=== PATIENT | male | born 1940 | race Caucasian/White ===

== ENCOUNTER 2016-12-04 16:20 | Inpatient (IN) | payer MEDICARE, OTHER ==
[2016-12-04] MEDS ORDERED: Haloperidol Lactate 5 mg/mL 1mL Vial IM STA (16:46)
[2016-12-04] MEDS ORDERED: Haloperidol Lactate 5 mg/mL 1mL Vial ONE (16:50)
[2016-12-04 17:15] LABS: MEAN CORPUSCULAR HEMOGLOBIN 27.1 pg (27.0-31.0)
[2016-12-04 17:18] LABS: HEMOGLOBIN 16.6 gm/dL (12.6-17.4); MEAN CORPUSCULAR HGB CONC 32.6 pg (28.0-36.0); MEAN PLATELET VOLUME 7.9 fl; PLATELET COUNT 214 Th/cmm (150-400); RED BLOOD COUNT 6.15 Mil/cmm (3.80-5.80); RED CELL DISTRIBUTION WIDTH 14.9 % (11.5-20.0); WHITE BLOOD COUNT 10.3 Th/cmm (4.8-10.8)
[2016-12-04 17:28] LABS: ALB/GLOB RATIO 1.1 (1.0-1.8); ALKALINE PHOSPHATASE 91 U/L (34-104); ANION GAP 11.4 (7.0-16.0); BILIRUBIN,TOTAL 0.8 mg/dL (0.3-1.0); BUN - UREA NITROGEN 17 mg/dL (7-25); CALCIUM SERUM 9.6 mg/dL (8.6-10.3); CARBON DIOXIDE 27.2 mEq/L (21.0-31.0); CHLORIDE 102 mEq/L (98-107); GLUCOSE 138 mg/dL (70-105); POTASSIUM SERUM 3.6 mEq/L (3.5-5.1); SGOT 13 U/L (13-39); SGPT/ALT 8 U/L (7-52); SODIUM SERUM 137 mEq/L (136-145)
[2016-12-04 17:29] LABS: CHOLESTEROL 148 mg/dL (<200); TRIGLYCERIDES 120 mg/dL (<150)
[2016-12-04 17:34] LABS: BASOPHIL 1 % (0-3); EOSINOPHIL 2 % (0-5); NEUTROPHILS 75 % (40-80); PLATELET ESTIMATE ADEQUATE (NORMAL); PLATELET MORPHOLOGY NORMAL (NORMAL); TOTAL CELLS COUNTED 100
[2016-12-04 17:38] LABS: INR 1.04 (0.5-1.4); PROTHROMBIN TIME (TEST) 10.8 SECONDS (9.5-11.5)
--- NOTE | 2016-12-04 18:08 | ED Physician Chart ---
Chief Complaint/HPI - Patient Information Date Seen:: 12/04/16 Time Seen:: 16:50 Chief Complaint:: COMBATIVE History of Present Illness:: THIS IS A 76 YO COMBATIVE AND UNCOOPERATIVE SENT HERE [facility]ALUATION AND PLACEMENT IN THE GEROPSYCH UNIT. HE IS CHRONICALLY ILL WITH RIGHT SIDED PARALYSIS. Allergies:: Allergies Allergy/AdvReac Type Severity Reaction Status Date / Time No Known Allergies Allergy Verified 12/04/16 16:35 Vitals:: Vital Signs - 8 hr 12/04/16 16:44 Temp 97.9 F HR 88 BP 130/80 O2 Sat % 99 Historian:: Medical Records Review:: Nurse's Note Reviewed, Transfer documents Reviewed Review of Systems - Review of Systems General/Constitutional: No fever, No chills, No weight loss, No weakness, No diaphoresis, No edema, No loss of appetite, Other (THE PATIENT IS CONFUSED AND CANNOT GIVE A REVIEW OF SYSTEMS.) Skin: No skin lesions, No rash, No bruising Head: No headache, No light-headedness Eyes: No loss of vision, No pain, No diplopia ENT: No earache, No nasal drainage, No sore throat, No tinnitus Neck: No neck pain, No swelling, No thyromegaly, No stiffness, No mass noted Cardio Vascular: No chest pain, No palpitations, No PND, No orthopnea, No edema Pulmonary: No SOB, No cough, No sputum, No wheezing GI: No nausea, No vomiting, No diarrhea, No pain, No melena, No hematochezia, No constipation, No hematemesis G/U: No dysuria, No frequency, No hematuria Musculoskeletal: No bone or joint pain, No back pain, No muscle pain Endocrine: No polyuria, No polydipsia Psychiatric: No prior psych history, No depression, No anxiety, No suicidal ideation Hematopoietic: No bruising, No lymphadenopathy Allergic/Immuno: No urticaria, No angioedema Neurological: No syncope, No focal symptoms, No weakness, No paresthesia, No headache, No seizure, No dizziness, No confusion, No vertigo Past Medical History - Past Medical History Past Medical History: HTN, CVA/TIA, Dyslipidemia, Dementia Family History: None Social History: Non Smoker, No Alcohol, No Drug Use, Care Facility Surgical History: None Psychiatricy History: Depression, Dementia Family Medical History - Family Member Grandmother History Unknown: Yes Physical Exam - Physical Examination General/Constitutional: Awake, Well-developed, well-nourished, Alert, No distress, GCS 15, Non-toxic appearing, Ambulatory Other Gen/Cons comments:: THIS IS A LOUD COMBATIVE, UNCOOPERATIVE DISORIENTED MALE WHO IS INTERMITTENTLY CONFUSED Head: Atraumatic Eyes: Lids, conjuctiva normal, PERRL, EOMI Skin: Nl inspection, No rash, No skin lesions, No ecchymosis, Well hydrated, No lymphadenopathy ENMT: External ears, nose nl, Nasal exam nl, Lips, teeth, gums nl Neck: Nontender, Full ROM w/o pain, No JVD, No nuchal rigidity, No bruit, No mass, No stridor Respiratory: Nl effort/Exclusion, Clear to Auscultation, No Wheeze/Rhonchi/Rales Cardio Vascular: RRR, No murmur, gallop, rubs, NL S1 S2 GI: No tenderness/rebounding/guarding, No organomegaly, No hernia, Normal BS's, Nondistended, No mass/bruits, No McBurney tenderness : No CVA tenderness Extremities: No tenderness or effusion, Full ROM, normal strength in all extremities, No edema, Normal digits & nails Neuro/Psych: Alert/oriented, DTR's symmetric, Normal sensory exam, Normal motor strength, No focal deficits Other Neuro/Psych comments:: RIGHT UPPER AND LOWER EXTREMITY PARALYSIS WITH RIGHT SIDE MUSCLE WASTING. Misc: normal gait, Normal back, No paraspinal tenderness Labs/Radiology/EKG Results - Lab Results Results: Laboratory Tests 12/04/16 12/04/16 12/04/16 17:02 17:02 17:02 WBC 10.3 RBC 6.15 H Hgb 16.6 Hct 51.0 H MCV 83.0 MCH 27.1 MCHC Differential 32.6 RDW 14.9 Plt Count 214 MPV 7.9 Neutrophils (Manual) 75 Lymphocytes 20 Monocytes 2 Eosinophils 2 Basophils 1 Platelet Estimate ADEQUATE Platelet Morphology NORMAL RBC Morph Micro Appear NORMAL PT 10.8 INR 1.04 PTT (Actin FS) 24.1 L Sodium Potassium Chloride Carbon Dioxide Anion Gap BUN Creatinine Est GFR ( Amer) Est GFR (Non-Af Amer) BUN/Creatinine Ratio Glucose Calcium Total Bilirubin AST ALT Alkaline Phosphatase Troponin I Total Protein Albumin Globulin Albumin/Globulin Ratio Triglycerides 120 Cholesterol 148 LDL Cholesterol Direct 97 HDL Cholesterol 37 12/04/16 12/04/16 17:02 17:02 WBC RBC Hgb Hct MCV MCH MCHC Differential RDW Plt Count MPV Neutrophils (Manual) Lymphocytes Monocytes Eosinophils Basophils Platelet Estimate Platelet Morphology RBC Morph Micro Appear PT INR PTT (Actin FS) Sodium 137 Potassium 3.6 Chloride 102 Carbon Dioxide 27.2 Anion Gap 11.4 BUN 17 Creatinine 1.0 Est GFR ( Amer) TNP Est GFR (Non-Af Amer) TNP BUN/Creatinine Ratio 17.0 Glucose 138 H Calcium 9.6 Total Bilirubin 0.8 AST 13 ALT 8 Alkaline Phosphatase 91 Troponin I 0.02 Total Protein 8.0 Albumin 4.1 L Globulin 3.9 Albumin/Globulin Ratio 1.1 Triglycerides Cholesterol LDL Cholesterol Direct HDL Cholesterol Assessment - Assessment General Assessment: PSYCHOSIS ED Septic Shock - . Is Septic Shock (SBP<90, OR Lactate>4 mmol\L) present?: No - <6hrs of presentation: Vital Signs: Vital Signs - 8 hr 12/04/16 16:44 Temp 97.9 F HR 88 BP 130/80 O2 Sat % 99 Reassessment (Disposition) - Reassessment Reassessment Condition:: Improved - Diagnosis Diagnosis:: PSYCHOSIS - Patient Disposition Discharge/Transfer:: Acute Care w/in this hosp Admitting Medical Physician:: Karl Jones Admitting Psych Physician:: Shi Keating Condition at Disposition:: Unchanged ED Discharge Plan - Patient Disposition Admit/Discharge/Transfer: Acute Care w/in this hosp Condition at Disposition: Improved Instructions: Psychosis
[2016-12-04 21:47] VITALS: BP 138/77
[2016-12-04] MEDS ORDERED: Maalox 30 mL Cup PO PRN (22:01)
[2016-12-04] MEDS ORDERED: Magnesium Hydroxide (MOM) 30 mL UDC PO PRN (22:01)
--- NOTE | 2016-12-05 09:18 | History and Physical ---
History of Present Illness - HPI Chief Complaint: Increased in agitation HPI: Patient was sent for agitation eval Vital Signs: Last Vital Signs Temp 97.9 F 12/04/16 16:44 Pulse 84 12/04/16 21:16 Resp 20 12/04/16 21:16 BP 138/77 12/04/16 21:47 Pulse Ox 98 12/04/16 21:16 Past Medical History Cardiovascular: Report: CAD, HTN Pulmonary: Report: No Pertinent Hx BEHAVIORAL HEALTH TECH: Report: CVA, Dementia GI: Report: No Pertinent Hx Psych: Report: Anxiety, Psychosis Musculoskeletal: Report: Other (Right hemiparesis) Rheumatologic: Report: No pertinent Hx Infectious Disease: Report: No Pertinent Hx Renal/: Report: No Pertinent Hx Endocrine: Report: No Pertinent Hx Dermatology: Report: No Pertinent Hx - Past Surgical History Past Surgical History: No pertinent Hx Family Medical History - Family Member Grandmother History Unknown: Yes Ethnicity: Unknown Living Status: Unknown Hx Family Cancer: No Hx Family Coronary Artery Disease: No Hx Family Congestive Heart Failure: No Hx Family Stroke: No Hx Family Diabetes: No Hx Family Seizures: No Hx Family AIDS: No Hx Family HIV: No Hx Family COPD: No Hx Family Hepatitis: No Hx Family Psychiatric Problems: No Hx Family Tuberculosis: No Social History Smoke: No Alcohol: None Drugs: None Lives: Shelter Domestic Violence: Negative - Medications Home Medications: Home Medication Medication Instructions Recorded Type Olanzapine [Zyprexa] 5 mg PO BID 12/04/16 History alprazOLAM [Xanax*] 0.5 mg PO TID PRN 12/04/16 History - Allergies Allergies/Adverse Reactions: Allergies Allergy/AdvReac Type Severity Reaction Status Date / Time No Known Allergies Allergy Verified 12/04/16 16:35 Review of Systems - Review of Systems Constitutional: Report: No Significant Eyes: Report: No Significant ENT: Report: No Significant Respiratory: Report: No Significant Cardiovascular: Report: No Significant Gastrointestinal: Report: No Significant Genitourinary: Report: No Significant Musculoskeletal: Report: Other (Right hemiparesis) Skin: Report: No Significant Neurological: Report: Weakness Physical Exam - Physical Exam HEENT: Report: Ears Nose Throat within normal limits Neck: Report: Within normal limits Cardiovascular Systems: Report: Regular, Rate and Rhythm Respiratory: Report: Breath Sounds are within normal limits Abdomen: Report: Non-tender to palpation Back: Report: Inspection of back is within normal limits. (There is right hemiparesis) Skin: Report: Color of skin is within normal limits Neuro/Psych: Report: Disoriented to name time or place, No new focal deficits - Lab Results All Lab Results last 24 hours: Laboratory Last Values WBC 10.3 Th/cmm (4.8-10.8) 12/04/16 17: RBC 6.15 Mil/cmm (3.80-5.80) H 12/04/16 17:02 Hgb 16.6 gm/dL (12.6-17.4) 12/04/16 17:02 Hct 51.0 % (39.0-49.0) H 12/04/16 17: MCV 83.0 fl (80-99) 12/04/16 17: MCH 27.1 pg (27.0-31.0) 12/04/16 17: MCHC Differential 32.6 pg (28.0-36.0) 12/04/16 17: RDW 14.9 % (11.5-20.0) 12/04/16 17: Plt Count 214 Th/cmm (150-400) 12/04/16 17: MPV 7.9 fl 12/04/16 17:02 Neutrophils (Manual) 75 % (40-80) 12/04/16 17: Lymphocytes 20 % (20-50) 12/04/16 17:02 Monocytes 2 % (2-10) 12/04/16 17: Eosinophils 2 % (0-5) 12/04/16 17: Basophils 1 % (0-3) 12/04/16 17: Platelet Estimate ADEQUATE (NORMAL) 12/04/16 17: Platelet Morphology NORMAL (NORMAL) 12/04/16 17: RBC Morph Micro Appear NORMAL (NORMAL) 12/04/16 17: PT 10.8 SECONDS (9.5-11.5) 12/04/16 17: INR 1.04 (0.5-1.4) 12/04/16 17:02 PTT (Actin FS) 24.1 SECONDS (26.0-38.0) L 12/04/16 17: Sodium 137 mEq/L (136-145) 12/04/16 17:02 Potassium 3.6 mEq/L (3.5-5.1) 12/04/16 17:02 Chloride 102 mEq/L (98-107) 12/04/16 17:02 Carbon Dioxide 27.2 mEq/L (21.0-31.0) 12/04/16 17:02 Anion Gap 11.4 (7.0-16.0) 12/04/16 17:02 BUN 17 mg/dL (7-25) 12/04/16 17:02 Creatinine 1.0 mg/dL (0.7-1.3) 12/04/16 17:02 Est GFR ( Amer) TNP 12/04/16 17:02 Est GFR (Non-Af Amer) TNP 12/04/16 17:02 BUN/Creatinine Ratio 17.0 12/04/16 17:02 Glucose 138 mg/dL (70-105) H 12/04/16 17:02 Calcium 9.6 mg/dL (8.6-10.3) 12/04/16 17:02 Total Bilirubin 0.8 mg/dL (0.3-1.0) 12/04/16 17:02 AST 13 U/L (13-39) 12/04/16 17:02 ALT 8 U/L (7-52) 12/04/16 17:02 Alkaline Phosphatase 91 U/L (34-104) 12/04/16 17:02 Troponin I 0.02 ng/mL (0.01-0.05) 12/04/16 17:02 Total Protein 8.0 gm/dL (6.0-8.3) 12/04/16 17:02 Albumin 4.1 gm/dL (4.2-5.5) L 12/04/16 17:02 Globulin 3.9 gm/dL 12/04/16 17:02 Albumin/Globulin Ratio 1.1 (1.0-1.8) 12/04/16 17:02 Triglycerides 120 mg/dL (<150) 12/04/16 17:02 Cholesterol 148 mg/dL (<200) 12/04/16 17:02 LDL Cholesterol Direct 97 mg/dL (75-193) 12/04/16 17:02 HDL Cholesterol 37 mg/dL (23-92) 12/04/16 17:02 TSH 2.16 uIU/ml (0.34-5.60) 12/04/16 17:02 - Assessment Assessment: Patient is awake, caml in no acute distress, Dx: Increased in agitation, S/P CVA , Right hemiparesis, HTN, Dementia - Plan Plan: Patient under psychiatric follow up, Will continue to monitor.
--- NOTE | 2016-12-05 09:21 | Psychosocial Evaluation ---
DATE OF SERVICE: 12/05/2016 JUSTIFICATION FOR HOSPITALIZATION: Agitation, combative, violent behaviors. CHIEF COMPLAINT: Decompensation and violence. HISTORY OF PRESENT ILLNESS: A 76-year-old male, self-inflicted scratches on his upper extremities, weak, combative, aggressive, and uncooperative at the assisted, trying to hit staff. On [id number], the patient making nonsensical comments, staff notes he does say some things. PAST PSYCHIATRIC HISTORY: It is unclear if he has a diagnosis of dementia, but it is likely, also depression noted. FAMILY HISTORY: Unknown. SOCIAL HISTORY: Nonsmoker, no alcohol, no drug use, living in a care facility, unclear social support. PAST SURGICAL HISTORY: None. PAST MEDICAL HISTORY: Hypertension, CVA, dyslipidemia. MENTAL STATUS EXAMINATION: Stated age, multiple self-inflicted excoriations noted. Speech, mumbling nonsensically. Thought processes were impoverished. Thought content __no___ SI or HI. Unclear psychotic symptoms. Poor insight. Poor judgment, poor impulse control. PROVISIONAL DIAGNOSES: Likely dementia with behavioral disturbances; psychosis, unspecified; mood, unspecified; anxiety, unspecified. MEDICAL: As noted. ESTIMATED LENGTH OF STAY: 5-7 days. ASSESSMENT: The patient requiring inpatient hospitalization, aggressive, agitated, combative, violence towards others and self. PLAN: We will make medication adjustments. Given the severity of his symptoms, he will require inpatient admission. CONDITIONS FOR DISCHARGE: Improved mood, improved affect, better control of his psychotic symptoms, aggressive symptoms, currently on Zyprexa. [facility]# [id number] ZACK
--- NOTE | 2016-12-06 10:00 | General Progress Note ---
Subjective - Review of Systems Service Date: 12/06/16 Subjective: Patient is confused Objective - Results Result Diagrams: 12/04/16 17:02 12/04/16 17:02 Recent Labs: Laboratory Last Values WBC 10.3 Th/cmm (4.8-10.8) 12/04/16 17:02 RBC 6.15 Mil/cmm (3.80-5.80) H 12/04/16 17:02 Hgb 16.6 gm/dL (12.6-17.4) 12/04/16 17:02 Hct 51.0 % (39.0-49.0) H 12/04/16 17:02 MCV 83.0 fl (80-99) 12/04/16 17: MCH 27.1 pg (27.0-31.0) 12/04/16 17: MCHC Differential 32.6 pg (28.0-36.0) 12/04/16 17:02 RDW 14.9 % (11.5-20.0) 12/04/16 17:02 Plt Count 214 Th/cmm (150-400) 12/04/16 17:02 MPV 7.9 fl 12/04/16 17:02 Neutrophils (Manual) 75 % (40-80) 12/04/16 17: Lymphocytes 20 % (20-50) 12/04/16 17:02 Monocytes 2 % (2-10) 12/04/16 17:02 Eosinophils 2 % (0-5) 12/04/16 17:02 Basophils 1 % (0-3) 12/04/16 17:02 Platelet Estimate ADEQUATE (NORMAL) 12/04/16 17: Platelet Morphology NORMAL (NORMAL) 12/04/16 17: RBC Morph Micro Appear NORMAL (NORMAL) 12/04/16 17:02 PT 10.8 SECONDS (9.5-11.5) 12/04/16 17:02 INR 1.04 (0.5-1.4) 12/04/16 17:02 PTT (Actin FS) 24.1 SECONDS (26.0-38.0) L 12/04/16 17:02 Sodium 137 mEq/L (136-145) 12/04/16 17:02 Potassium 3.6 mEq/L (3.5-5.1) 12/04/16 17:02 Chloride 102 mEq/L (98-107) 12/04/16 17:02 Carbon Dioxide 27.2 mEq/L (21.0-31.0) 12/04/16 17:02 Anion Gap 11.4 (7.0-16.0) 12/04/16 17:02 BUN 17 mg/dL (7-25) 12/04/16 17:02 Creatinine 1.0 mg/dL (0.7-1.3) 12/04/16 17:02 Est GFR ( Amer) TNP 12/04/16 17:02 Est GFR (Non-Af Amer) TNP 12/04/16 17:02 BUN/Creatinine Ratio 17.0 12/04/16 17:02 Glucose 138 mg/dL (70-105) H 12/04/16 17:02 Calcium 9.6 mg/dL (8.6-10.3) 12/04/16 17:02 Total Bilirubin 0.8 mg/dL (0.3-1.0) 12/04/16 17:02 AST 13 U/L (13-39) 12/04/16 17:02 ALT 8 U/L (7-52) 12/04/16 17:02 Alkaline Phosphatase 91 U/L (34-104) 12/04/16 17:02 Troponin I 0.02 ng/mL (0.01-0.05) 12/04/16 17:02 Total Protein 8.0 gm/dL (6.0-8.3) 12/04/16 17:02 Albumin 4.1 gm/dL (4.2-5.5) L 12/04/16 17:02 Globulin 3.9 gm/dL 12/04/16 17:02 Albumin/Globulin Ratio 1.1 (1.0-1.8) 12/04/16 17:02 Triglycerides 120 mg/dL (<150) 12/04/16 17:02 Cholesterol 148 mg/dL (<200) 12/04/16 17:02 LDL Cholesterol Direct 97 mg/dL (75-193) 12/04/16 17:02 HDL Cholesterol 37 mg/dL (23-92) 12/04/16 17:02 TSH 2.16 uIU/ml (0.34-5.60) 12/04/16 17:02 RPR NONREACTIVE (NONREACTIVE) 12/04/16 17:02 - Physical Exam Vitals and I&O: Vital Signs Temp 97.9 F 12/04/16 16:44 Pulse 84 12/04/16 21:16 Resp 18 12/05/16 20:00 BP 138/77 12/04/16 21:47 Pulse Ox 98 12/04/16 21:16 Intake & Output 12/05/16 12/06/16 12/06/16 18:59 06:59 18:59 Intake Total 850 120 Balance 850 120 Intake: Oral 850 120 Other: # Voids 5 2 # Bowel Movements 1 Active Medications: Current Medications Acetaminophen (Tylenol) 650 mg PO Q6H PRN PRN Reason: Mild Pain/Headache/T above 101 Stop: 02/02/17 22:00 Al Hydrox/Mg Hydrox/Simethicone (Maalox) 30 ml PO Q6H PRN PRN Reason: Dyspepsia Stop: 02/02/17 22:00 Alprazolam (Xanax) 0.5 mg PO TID PRN; Protocol PRN Reason: Anxiety Stop: 02/02/17 22:02 Lorazepam (Ativan) 1 mg PO Q6H PRN; Protocol PRN Reason: Anxiety/Agitation Stop: 02/02/17 22:00 Magnesium Hydroxide (Milk Of Magnesia) 30 ml PO HS PRN PRN Reason: Constipation Stop: 02/02/17 22:00 Olanzapine (Zyprexa) 7.5 mg PO HS GINETTE PRN Reason: Protocol Stop: 02/04/17 20:59 Olanzapine (Zyprexa) 5 mg PO DAILY GINETTE PRN Reason: Protocol Stop: 02/04/17 08:59 Last Admin: 12/06/16 09:52 Dose: Not Given Zolpidem Tartrate (Ambien) 5 mg PO HS PRN PRN Reason: Insomnia Stop: 02/02/17 22:00 General: Other (Sleeping but arousable) HEENT: Atraumatic Cardiovascular: Regular rate Lungs: Clear to auscultation Abdomen: Bowel sounds, Soft Extremities: Other (No edema) Neurological: Other (Unstable gait ) Skin: Other Psych/Mental Status: Other (Confused, not oriented) Assessment/Plan - Assessment Assessment: Patient is awake, caml in no acute distress, Dx: Increased in agitation, S/P CVA , Right hemiparesis, HTN, Dementia - Plan Plan: Patient under psychiatric follow up, Will continue to monitor.
--- NOTE | 2016-12-06 11:00 | Progress Notes ---
DATE: 12/06/2016 SUBJECTIVE: The patient seen, chart reviewed, discussed with staff. The patient is currently under the care of Dr. Keating. The patient came in because of agitation and aggressive behaviors, hostile behaviors. The patient seems confused, disoriented, right-sided paralysis, refusing to speak with me this morning. Staff noting he tries to lash out and hit staff. sleeping fairly well, eating with prompting, ADLs with prompting. ASSESSMENT: The patient remains symptomatic, aggressive, hostile towards staff. PLAN: We will continue to monitor, given the severity of his ongoing symptoms there are continued safety concerns. He is currently on Zyprexa 5 mg twice daily. We will consider dose titration given the ongoing severity of his confusional state as well as aggressive behaviors. [facility]# [id number]
--- NOTE | 2016-12-07 11:12 | General Progress Note ---
Subjective - Review of Systems Service Date: 12/07/16 Subjective: Patient is confused Objective - Results Result Diagrams: 12/04/16 17:02 12/04/16 17:02 Recent Labs: Laboratory Last Values WBC 10.3 Th/cmm (4.8-10.8) 12/04/16 17:02 RBC 6.15 Mil/cmm (3.80-5.80) H 12/04/16 17:02 Hgb 16.6 gm/dL (12.6-17.4) 12/04/16 17:02 Hct 51.0 % (39.0-49.0) H 12/04/16 17:02 MCV 83.0 fl (80-99) 12/04/16 17: MCH 27.1 pg (27.0-31.0) 12/04/16 17: MCHC Differential 32.6 pg (28.0-36.0) 12/04/16 17:02 RDW 14.9 % (11.5-20.0) 12/04/16 17:02 Plt Count 214 Th/cmm (150-400) 12/04/16 17:02 MPV 7.9 fl 12/04/16 17:02 Neutrophils (Manual) 75 % (40-80) 12/04/16 17: Lymphocytes 20 % (20-50) 12/04/16 17:02 Monocytes 2 % (2-10) 12/04/16 17:02 Eosinophils 2 % (0-5) 12/04/16 17:02 Basophils 1 % (0-3) 12/04/16 17:02 Platelet Estimate ADEQUATE (NORMAL) 12/04/16 17: Platelet Morphology NORMAL (NORMAL) 12/04/16 17: RBC Morph Micro Appear NORMAL (NORMAL) 12/04/16 17:02 PT 10.8 SECONDS (9.5-11.5) 12/04/16 17:02 INR 1.04 (0.5-1.4) 12/04/16 17:02 PTT (Actin FS) 24.1 SECONDS (26.0-38.0) L 12/04/16 17:02 Sodium 137 mEq/L (136-145) 12/04/16 17:02 Potassium 3.6 mEq/L (3.5-5.1) 12/04/16 17:02 Chloride 102 mEq/L (98-107) 12/04/16 17:02 Carbon Dioxide 27.2 mEq/L (21.0-31.0) 12/04/16 17:02 Anion Gap 11.4 (7.0-16.0) 12/04/16 17:02 BUN 17 mg/dL (7-25) 12/04/16 17:02 Creatinine 1.0 mg/dL (0.7-1.3) 12/04/16 17:02 Est GFR ( Amer) TNP 12/04/16 17:02 Est GFR (Non-Af Amer) TNP 12/04/16 17:02 BUN/Creatinine Ratio 17.0 12/04/16 17:02 Glucose 138 mg/dL (70-105) H 12/04/16 17:02 Calcium 9.6 mg/dL (8.6-10.3) 12/04/16 17:02 Total Bilirubin 0.8 mg/dL (0.3-1.0) 12/04/16 17:02 AST 13 U/L (13-39) 12/04/16 17:02 ALT 8 U/L (7-52) 12/04/16 17:02 Alkaline Phosphatase 91 U/L (34-104) 12/04/16 17:02 Troponin I 0.02 ng/mL (0.01-0.05) 12/04/16 17:02 Total Protein 8.0 gm/dL (6.0-8.3) 12/04/16 17:02 Albumin 4.1 gm/dL (4.2-5.5) L 12/04/16 17:02 Globulin 3.9 gm/dL 12/04/16 17:02 Albumin/Globulin Ratio 1.1 (1.0-1.8) 12/04/16 17:02 Triglycerides 120 mg/dL (<150) 12/04/16 17:02 Cholesterol 148 mg/dL (<200) 12/04/16 17:02 LDL Cholesterol Direct 97 mg/dL (75-193) 12/04/16 17:02 HDL Cholesterol 37 mg/dL (23-92) 12/04/16 17:02 TSH 2.16 uIU/ml (0.34-5.60) 12/04/16 17:02 RPR NONREACTIVE (NONREACTIVE) 12/04/16 17:02 - Physical Exam Vitals and I&O: Vital Signs Temp 97.9 F 12/04/16 16:44 Pulse 84 12/04/16 21:16 Resp 18 12/05/16 20:00 BP 138/77 12/04/16 21:47 Pulse Ox 98 12/04/16 21:16 Intake & Output 12/06/16 12/07/16 12/07/16 18:59 06:59 18:59 Intake Total 950 180 Balance 950 180 Intake: Oral 950 180 Other: # Voids 4 2 # Bowel Movements 0 0 Active Medications: Current Medications Acetaminophen (Tylenol) 650 mg PO Q6H PRN PRN Reason: Mild Pain/Headache/T above 101 Stop: 02/02/17 22:00 Al Hydrox/Mg Hydrox/Simethicone (Maalox) 30 ml PO Q6H PRN PRN Reason: Dyspepsia Stop: 02/02/17 22:00 Alprazolam (Xanax) 0.5 mg PO TID PRN; Protocol PRN Reason: Anxiety Stop: 02/02/17 22:02 Lorazepam (Ativan) 1 mg PO Q6H PRN; Protocol PRN Reason: Anxiety/Agitation Stop: 02/02/17 22:00 Last Admin: 12/06/16 10:20 Dose: 1 mg Magnesium Hydroxide (Milk Of Magnesia) 30 ml PO HS PRN PRN Reason: Constipation Stop: 02/02/17 22:00 Olanzapine (Zyprexa) 7.5 mg PO HS GINETTE PRN Reason: Protocol Stop: 02/04/17 20:59 Last Admin: 12/06/16 21:23 Dose: Not Given Olanzapine (Zyprexa) 5 mg PO DAILY GINETTE PRN Reason: Protocol Stop: 02/04/17 08:59 Last Admin: 12/06/16 09:52 Dose: Not Given Zolpidem Tartrate (Ambien) 5 mg PO HS PRN PRN Reason: Insomnia Stop: 02/02/17 22:00 General: Other (Sleeping but arousable) HEENT: Atraumatic Cardiovascular: Regular rate Lungs: Clear to auscultation Abdomen: Bowel sounds, Soft Extremities: Other (No edema) Neurological: Other (Unstable gait ) Skin: Other Psych/Mental Status: Other (Confused, not oriented) Assessment/Plan - Assessment Assessment: Patient is awake, caml in no acute distress, Patient is refusing vitals be taken. Dx: Increased in agitation, S/P CVA, Right hemiparesis, HTN, Dementia - Plan Plan: Patient under psychiatric follow up, Will continue to monitor.
--- NOTE | 2016-12-07 14:06 | Progress Notes ---
DATE: 12/07/[address] Keating. SUBJECTIVE: The patient was seen and evaluated. The patient's chart reviewed. Overnight nursing staff reported the patient is easily agitated, aggressive and irritable and instigating altercation with his neighbor. Today on [id number], presents very irritable, easily agitated, minimizing, preoccupied only about going home, disengaged in regards to his treatments, easily aggressive verbally. At bedside, his son is reporting that he has been declining, recently become more aggressive and difficult to maintain his ADLs. Today, no side effects to medications observed on olanzapine. He is able to ____ total of 12.5. MENTAL STATUS EXAMINATION: Paranoid, delusional, easily agitated, labile, poor insight, judgment and impulse control. ASSESSMENT AND PLAN: The patient is a 76-year-old male with a history of schizophrenia, presented very aggressive verbally and physically, unable to formulate a safe plan. We will continue with the current medication regimen and titrate the Zyprexa as tolerated while we start him on a 14-day hold. JOB# [id number]
--- NOTE | 2016-12-08 09:02 | General Progress Note ---
Subjective - Review of Systems Service Date: 12/08/16 Subjective: Patient is confused Objective - Results Result Diagrams: 12/04/16 17:02 12/04/16 17:02 Recent Labs: Laboratory Last Values WBC 10.3 Th/cmm (4.8-10.8) 12/04/16 17:02 RBC 6.15 Mil/cmm (3.80-5.80) H 12/04/16 17:02 Hgb 16.6 gm/dL (12.6-17.4) 12/04/16 17:02 Hct 51.0 % (39.0-49.0) H 12/04/16 17:02 MCV 83.0 fl (80-99) 12/04/16 17: MCH 27.1 pg (27.0-31.0) 12/04/16 17: MCHC Differential 32.6 pg (28.0-36.0) 12/04/16 17:02 RDW 14.9 % (11.5-20.0) 12/04/16 17:02 Plt Count 214 Th/cmm (150-400) 12/04/16 17:02 MPV 7.9 fl 12/04/16 17:02 Neutrophils (Manual) 75 % (40-80) 12/04/16 17: Lymphocytes 20 % (20-50) 12/04/16 17:02 Monocytes 2 % (2-10) 12/04/16 17:02 Eosinophils 2 % (0-5) 12/04/16 17:02 Basophils 1 % (0-3) 12/04/16 17:02 Platelet Estimate ADEQUATE (NORMAL) 12/04/16 17: Platelet Morphology NORMAL (NORMAL) 12/04/16 17: RBC Morph Micro Appear NORMAL (NORMAL) 12/04/16 17:02 PT 10.8 SECONDS (9.5-11.5) 12/04/16 17:02 INR 1.04 (0.5-1.4) 12/04/16 17:02 PTT (Actin FS) 24.1 SECONDS (26.0-38.0) L 12/04/16 17:02 Sodium 137 mEq/L (136-145) 12/04/16 17:02 Potassium 3.6 mEq/L (3.5-5.1) 12/04/16 17:02 Chloride 102 mEq/L (98-107) 12/04/16 17:02 Carbon Dioxide 27.2 mEq/L (21.0-31.0) 12/04/16 17:02 Anion Gap 11.4 (7.0-16.0) 12/04/16 17:02 BUN 17 mg/dL (7-25) 12/04/16 17:02 Creatinine 1.0 mg/dL (0.7-1.3) 12/04/16 17:02 Est GFR ( Amer) TNP 12/04/16 17:02 Est GFR (Non-Af Amer) TNP 12/04/16 17:02 BUN/Creatinine Ratio 17.0 12/04/16 17:02 Glucose 138 mg/dL (70-105) H 12/04/16 17:02 Calcium 9.6 mg/dL (8.6-10.3) 12/04/16 17:02 Total Bilirubin 0.8 mg/dL (0.3-1.0) 12/04/16 17:02 AST 13 U/L (13-39) 12/04/16 17:02 ALT 8 U/L (7-52) 12/04/16 17:02 Alkaline Phosphatase 91 U/L (34-104) 12/04/16 17:02 Troponin I 0.02 ng/mL (0.01-0.05) 12/04/16 17:02 Total Protein 8.0 gm/dL (6.0-8.3) 12/04/16 17:02 Albumin 4.1 gm/dL (4.2-5.5) L 12/04/16 17:02 Globulin 3.9 gm/dL 12/04/16 17:02 Albumin/Globulin Ratio 1.1 (1.0-1.8) 12/04/16 17:02 Triglycerides 120 mg/dL (<150) 12/04/16 17:02 Cholesterol 148 mg/dL (<200) 12/04/16 17:02 LDL Cholesterol Direct 97 mg/dL (75-193) 12/04/16 17:02 HDL Cholesterol 37 mg/dL (23-92) 12/04/16 17:02 TSH 2.16 uIU/ml (0.34-5.60) 12/04/16 17:02 RPR NONREACTIVE (NONREACTIVE) 12/04/16 17:02 - Physical Exam Vitals and I&O: Vital Signs Temp 97.6 F 12/08/16 06:42 Pulse 82 12/08/16 06:42 Resp 20 12/08/16 06:42 BP 102/72 12/08/16 06:42 Pulse Ox 97 12/08/16 06:42 Intake & Output 12/07/16 12/08/16 12/08/16 18:59 06:59 18:59 Intake Total 1800 60 Balance 1800 60 Weight (lbs) 86.183 kg Intake: Oral 1800 60 Other: # Voids 4 3 # Bowel Movements 0 0 Active Medications: Current Medications Acetaminophen (Tylenol) 650 mg PO Q6H PRN PRN Reason: Mild Pain/Headache/T above 101 Stop: 02/02/17 22:00 Al Hydrox/Mg Hydrox/Simethicone (Maalox) 30 ml PO Q6H PRN PRN Reason: Dyspepsia Stop: 02/02/17 22:00 Alprazolam (Xanax) 0.5 mg PO TID PRN; Protocol PRN Reason: Anxiety Stop: 02/02/17 22:02 Lorazepam (Ativan) 1 mg PO Q6H PRN; Protocol PRN Reason: Anxiety/Agitation Stop: 02/02/17 22:00 Last Admin: 12/06/16 10:20 Dose: 1 mg Magnesium Hydroxide (Milk Of Magnesia) 30 ml PO HS PRN PRN Reason: Constipation Stop: 02/02/17 22:00 Olanzapine (Zyprexa) 7.5 mg PO HS GINETTE PRN Reason: Protocol Stop: 02/04/17 20:59 Last Admin: 12/07/16 20:16 Dose: Not Given Olanzapine (Zyprexa) 5 mg PO DAILY GINETTE PRN Reason: Protocol Stop: 02/04/17 08:59 Last Admin: 12/07/16 12:16 Dose: Not Given Zolpidem Tartrate (Ambien) 5 mg PO HS PRN PRN Reason: Insomnia Stop: 02/02/17 22:00 General: Other (Sleeping but arousable) HEENT: Atraumatic Cardiovascular: Regular rate Lungs: Clear to auscultation Abdomen: Bowel sounds, Soft Extremities: Other (No edema) Neurological: Other (Unstable gait ) Skin: Other Psych/Mental Status: Other (Confused, not oriented) Assessment/Plan - Assessment Assessment: Patient is awake, caml in no acute distress, Patient is refusing vitals be taken. Dx: Increased in agitation, S/P CVA, Right hemiparesis, HTN, Dementia - Plan Plan: Patient under psychiatric follow up, Will continue to monitor.
--- NOTE | 2016-12-09 01:57 | Progress Notes ---
DATE: 12/08/2016 Case was discussed with staff of the patient, reviewed records. This is a 76-year-old male who was admitted on 12/04/2016. He has made self-inflicted wound on his upper extremities. He is being weak, combative, aggressive and uncooperative at the long term, trying to hit staff. The patient was not making sense. He did not say anything. He has not been taking his medication. Unable to participate in meaningful conversation. When asked about his medication, he was unable to tell me anything or answer any of my questions. He has been internally preoccupied. Very poor insight. Unable to participate in meaningful conversations Dr. Curtis have him on olanzapine 5 mg in the morning and 7.5 mg at bedtime with no side effects. No sedation, no nausea. I will be adding Aricept to his medication to help with his dementing process. Also, we will try to reach him. I tried to ask him many times why he would not take his medications ____ and he does not seem to understand the process and I will continue to work with the patient in group therapy, milieu therapy, adjust the medication as needed. JOB# [id number]
--- NOTE | 2016-12-09 22:37 | Progress Notes ---
DATE: 12/09/2016 Case was discussed with staff of the patient, reviewed records. The patient continues to refuse to take his medication. He continues to be unable to carry on a conversation. When I tried to talk to him about why he is not taking his medication, if there was any side effect to this, any other medication that he would take, he was just waving his hand. He was unable to answer any of my questions in any appropriate way or tell me why he is not taking his medication. He also is demented and confused, and I did initiate Aricept on him, and so far ____ I tried to convince the patient to take his medication; however, I ____. He is also on 5250 hold that was signed by Dr. Fowler on 12/07/2016 because of his aggressive behavior and unable to formulate a safe plan for self-care. I will continue the patient in group therapy, milieu therapy, and adjust medication as needed. JOB# [id number]
--- NOTE | 2016-12-10 02:25 | Admit Criteria Form ---
Admit Criteria Forms - Admit Criteria Diagnosis: PSYCHIATRIC DISORDERS (Place 'X' for any and all applicable criteria): Ongoing inpatient care may be needed for 1 or more of the following(1)(2)(3)(4)( 6)(7)(8): [ ]I. Danger to self or others not manageable at lower level of care. [ ]II. Grave disability (eg, inability to perform self care necessary at lower level of care) [X ]III. Agitation or inappropriate behavior interfering with care for primary condition (eg, attempting to discontinue lines or drains prematurely, unable to cooperate with respiratory care) [ ]IV. Severe disability or disorder indicated by ALL of the following: [ ]a) Severe behavioral health disorder-related symptoms or condition indicated by 1 or more of the following: [ ]i) Severe problem with cognition, memory, judgment, or impulse control [ ]ii) Severe clinical manifestations (eg, hallucinations, delusions, other acute psychotic symptoms, katie, extreme agitation or anxiety) [ ]b) Patient management at lower level of care is not feasible until acute intervention or modification is initiated. Extended stay beyond goal length of stay for the primary condition may be needed until ALLof the following are present(1)(2)(3)(4)(722)(23): [ ]a) Danger to self or others is absent or manageable at lower level of care [ ]b) Behavior crisis management, including physical or chemical restraints, is required and is not available at a lower level of care. [ ]c) Behavioral symptoms (e.g., agitation, somnolence, inappropriate behavior) are present, and are not manageable at a lower level of care. [ ]d) Patient cannot understand follow-up treatment and crisis plan. [ ]e) Provider and supports are sufficiently available at lower level of care. [ ]f) Patient can participate (e.g., verify absence of plan for harm) and is in needed of monitoring. The original [facility] [employer] content created by [facility] has been revised. The portions of the content which have been revised are identified through the use of italic text or in bold, and [facility] [employer] has neither reviewed nor approved the modified material. All other unmodified content is copyright [facility]. Please see references footnoted in the original [facility] edition 2017 Admit Criteria Met?: Yes
--- NOTE | 2016-12-10 12:21 | General Progress Note ---
Subjective - Review of Systems Service Date: 12/10/16 Subjective: Patient is confused Objective - Results Result Diagrams: 12/04/16 17:02 12/04/16 17:02 Recent Labs: Laboratory Last Values WBC 10.3 Th/cmm (4.8-10.8) 12/04/16 17:02 RBC 6.15 Mil/cmm (3.80-5.80) H 12/04/16 17:02 Hgb 16.6 gm/dL (12.6-17.4) 12/04/16 17:02 Hct 51.0 % (39.0-49.0) H 12/04/16 17:02 MCV 83.0 fl (80-99) 12/04/16 17: MCH 27.1 pg (27.0-31.0) 12/04/16 17: MCHC Differential 32.6 pg (28.0-36.0) 12/04/16 17:02 RDW 14.9 % (11.5-20.0) 12/04/16 17:02 Plt Count 214 Th/cmm (150-400) 12/04/16 17:02 MPV 7.9 fl 12/04/16 17:02 Neutrophils (Manual) 75 % (40-80) 12/04/16 17: Lymphocytes 20 % (20-50) 12/04/16 17:02 Monocytes 2 % (2-10) 12/04/16 17:02 Eosinophils 2 % (0-5) 12/04/16 17:02 Basophils 1 % (0-3) 12/04/16 17:02 Platelet Estimate ADEQUATE (NORMAL) 12/04/16 17: Platelet Morphology NORMAL (NORMAL) 12/04/16 17: RBC Morph Micro Appear NORMAL (NORMAL) 12/04/16 17:02 PT 10.8 SECONDS (9.5-11.5) 12/04/16 17:02 INR 1.04 (0.5-1.4) 12/04/16 17:02 PTT (Actin FS) 24.1 SECONDS (26.0-38.0) L 12/04/16 17:02 Sodium 137 mEq/L (136-145) 12/04/16 17:02 Potassium 3.6 mEq/L (3.5-5.1) 12/04/16 17:02 Chloride 102 mEq/L (98-107) 12/04/16 17:02 Carbon Dioxide 27.2 mEq/L (21.0-31.0) 12/04/16 17:02 Anion Gap 11.4 (7.0-16.0) 12/04/16 17:02 BUN 17 mg/dL (7-25) 12/04/16 17:02 Creatinine 1.0 mg/dL (0.7-1.3) 12/04/16 17:02 Est GFR ( Amer) TNP 12/04/16 17:02 Est GFR (Non-Af Amer) TNP 12/04/16 17:02 BUN/Creatinine Ratio 17.0 12/04/16 17:02 Glucose 138 mg/dL (70-105) H 12/04/16 17:02 Calcium 9.6 mg/dL (8.6-10.3) 12/04/16 17:02 Total Bilirubin 0.8 mg/dL (0.3-1.0) 12/04/16 17:02 AST 13 U/L (13-39) 12/04/16 17:02 ALT 8 U/L (7-52) 12/04/16 17:02 Alkaline Phosphatase 91 U/L (34-104) 12/04/16 17:02 Troponin I 0.02 ng/mL (0.01-0.05) 12/04/16 17:02 Total Protein 8.0 gm/dL (6.0-8.3) 12/04/16 17:02 Albumin 4.1 gm/dL (4.2-5.5) L 12/04/16 17:02 Globulin 3.9 gm/dL 12/04/16 17:02 Albumin/Globulin Ratio 1.1 (1.0-1.8) 12/04/16 17:02 Triglycerides 120 mg/dL (<150) 12/04/16 17:02 Cholesterol 148 mg/dL (<200) 12/04/16 17:02 LDL Cholesterol Direct 97 mg/dL (75-193) 12/04/16 17:02 HDL Cholesterol 37 mg/dL (23-92) 12/04/16 17:02 TSH 2.16 uIU/ml (0.34-5.60) 12/04/16 17:02 RPR NONREACTIVE (NONREACTIVE) 12/04/16 17:02 - Physical Exam Vitals and I&O: Vital Signs Temp 0 F 12/09/16 06:47 Pulse 78 12/08/16 14:00 Resp 20 12/09/16 08:00 BP 128/66 12/08/16 14:00 Pulse Ox 96 12/08/16 14:00 Intake & Output 12/09/16 12/10/16 12/10/16 18:59 06:59 18:59 Intake Total 1200 120 Output Total 600 Balance 600 120 Weight (lbs) 86.092 kg Intake: Oral 1200 120 Output: Urine/Stool Mix 600 Other: # Voids 3 Active Medications: Current Medications Acetaminophen (Tylenol) 650 mg PO Q6H PRN PRN Reason: Mild Pain/Headache/T above 101 Stop: 02/02/17 22:00 Al Hydrox/Mg Hydrox/Simethicone (Maalox) 30 ml PO Q6H PRN PRN Reason: Dyspepsia Stop: 02/02/17 22:00 Alprazolam (Xanax) 0.5 mg PO TID PRN; Protocol PRN Reason: Anxiety Stop: 02/02/17 22:02 Donepezil HCl (Aricept) 5 mg PO HS GINETTE Stop: 02/06/17 20:59 Last Admin: 12/09/16 20:49 Dose: Not Given Lorazepam (Ativan) 1 mg PO Q6H PRN; Protocol PRN Reason: Anxiety/Agitation Stop: 02/02/17 22:00 Last Admin: 12/06/16 10:20 Dose: 1 mg Magnesium Hydroxide (Milk Of Magnesia) 30 ml PO HS PRN PRN Reason: Constipation Stop: 02/02/17 22:00 Olanzapine (Zyprexa) 7.5 mg PO HS GINETTE PRN Reason: Protocol Stop: 02/04/17 20:59 Last Admin: 12/09/16 20:49 Dose: Not Given Olanzapine (Zyprexa) 5 mg PO DAILY GINETTE PRN Reason: Protocol Stop: 02/04/17 08:59 Last Admin: 12/10/16 09:27 Dose: Not Given Zolpidem Tartrate (Ambien) 5 mg PO HS PRN PRN Reason: Insomnia Stop: 02/02/17 22:00 General: Other (Sleeping but arousable) HEENT: Atraumatic Cardiovascular: Regular rate Lungs: Clear to auscultation Abdomen: Bowel sounds, Soft Extremities: Other (No edema) Neurological: Other (Unstable gait ) Skin: Other Psych/Mental Status: Other (Confused, not oriented) Assessment/Plan - Assessment Assessment: Patient is awake, caml in no acute distress, Patient is refusing vitals be taken. Dx: Increased in agitation, S/P CVA, Right hemiparesis, HTN, Dementia - Plan Plan: Patient under psychiatric follow up, Will continue to monitor. Nutritional Asmnt/Malnutr-PDOC - Dietary Evaluation Malnutrition Findings (Please click <Entered> for more info): Nutritional Asmnt/Malnutrition Start: 12/09/16 15: 20 Text: Status: Complete Freq: Document 12/09/16 15:20 GSUN (Rec: 12/09/16 15:38 GSUN [email or web address]) Nutritional Asmnt/Malnutrition Patient General Information Nutritional Screening Moderate Risk Screening Diagnosis Reason for visit: psychosis Pertinent Medical Hx/Surgical Hx CAD, HTN, CVA, dementia, anxiety, psychosis, right hemiparesis, depression Subjective Information 76 year old male from SNF with self inflicted scratches on upper extremities. Pt was confused, pt pointed at his wounds and said "so pretty" several times. Pt stated meals have been good, did not provide any other meaningful responses. Teeth intact. No muscle fat wasting noted. No nutritional concerns per nursing staff. Avg 79% of meals since adm, meeting nutritional needs. Current Diet Order/ Nutrition Support YOLY Pertinent Medications MOM Pertinent Labs Reviewed. Nutritional Hx/Data Height 1.75 m Height (Calculated Centimeters) 175.3 Current Weight (lbs) 86.092 kg Weight (Calculated Kilograms) 86.1 Weight (Calculated Grams) 78214.8 [place] Body Weight 160 Weight Status Overweight GI Symptoms Usual diet at home [facility] [place]: YOLY , peanut butter and jethro sandwich L and D Skin Integrity/Comment: Chris 16. Current %PO Good (75-100%) Estimated Nutritional Goals Calories/Kcals/Kg IBW 160lb/72.7kg Kcals Calculated 1818-2181kcal (25-30kcal/kg) Protein Calculated 73g (1g/kg) Fluid: ml 1818-2181ml (1ml/kcal) Nutritional Problem 1. Problem Problem No nutritional problem at this time. Intervention/Recommendation Comments 1. Continue with current diet order. Avg PO intake is adequate. 2. Remove "peanut butter and jelly" from diet order as pt is meeting nutritional needs from meals. Expected Outcomes/Goals Expected Outcomes/Goals 1. PO intake continue to meet at least 75% of estimated nutritional needs.
--- NOTE | 2016-12-11 06:37 | Progress Notes ---
DATE: 12/10/2016 Case was discussed with staff of the patient, reviewed records. The patient continues to refuse taking his medication. He continues to be internally preoccupied. Unable to participate in meaningful conversations, also hard of hearing. He is still unpredictable, impulsive. He is supposed to be on olanzapine, Aricept and Xanax as needed. I will be initiating a release on this patient because of his refusal and we will continue to work with the patient in group therapy, milieu therapy, and adjust the medication as needed. JOB# [id number]
[2016-12-11] MEDS ORDERED: Haloperidol Lactate 5 mg/mL 1mL Vial IM PRN (13:15)
--- NOTE | 2016-12-11 13:36 | General Progress Note ---
Subjective - Review of Systems Service Date: 12/11/16 Subjective: Patient is confused Objective - Results Result Diagrams: 12/04/16 17:02 12/04/16 17:02 Recent Labs: Laboratory Last Values WBC 10.3 Th/cmm (4.8-10.8) 12/04/16 17:02 RBC 6.15 Mil/cmm (3.80-5.80) H 12/04/16 17:02 Hgb 16.6 gm/dL (12.6-17.4) 12/04/16 17:02 Hct 51.0 % (39.0-49.0) H 12/04/16 17:02 MCV 83.0 fl (80-99) 12/04/16 17: MCH 27.1 pg (27.0-31.0) 12/04/16 17: MCHC Differential 32.6 pg (28.0-36.0) 12/04/16 17:02 RDW 14.9 % (11.5-20.0) 12/04/16 17:02 Plt Count 214 Th/cmm (150-400) 12/04/16 17:02 MPV 7.9 fl 12/04/16 17:02 Neutrophils (Manual) 75 % (40-80) 12/04/16 17: Lymphocytes 20 % (20-50) 12/04/16 17:02 Monocytes 2 % (2-10) 12/04/16 17:02 Eosinophils 2 % (0-5) 12/04/16 17:02 Basophils 1 % (0-3) 12/04/16 17:02 Platelet Estimate ADEQUATE (NORMAL) 12/04/16 17: Platelet Morphology NORMAL (NORMAL) 12/04/16 17:02 RBC Morph Micro Appear NORMAL (NORMAL) 12/04/16 17:02 PT 10.8 SECONDS (9.5-11.5) 12/04/16 17:02 INR 1.04 (0.5-1.4) 12/04/16 17:02 PTT (Actin FS) 24.1 SECONDS (26.0-38.0) L 12/04/16 17:02 Sodium 137 mEq/L (136-145) 12/04/16 17:02 Potassium 3.6 mEq/L (3.5-5.1) 12/04/16 17:02 Chloride 102 mEq/L (98-107) 12/04/16 17:02 Carbon Dioxide 27.2 mEq/L (21.0-31.0) 12/04/16 17:02 Anion Gap 11.4 (7.0-16.0) 12/04/16 17:02 BUN 17 mg/dL (7-25) 12/04/16 17:02 Creatinine 1.0 mg/dL (0.7-1.3) 12/04/16 17:02 Est GFR ( Amer) TNP 12/04/16 17:02 Est GFR (Non-Af Amer) TNP 12/04/16 17:02 BUN/Creatinine Ratio 17.0 12/04/16 17:02 Glucose 138 mg/dL (70-105) H 12/04/16 17:02 Calcium 9.6 mg/dL (8.6-10.3) 12/04/16 17:02 Total Bilirubin 0.8 mg/dL (0.3-1.0) 12/04/16 17:02 AST 13 U/L (13-39) 12/04/16 17:02 ALT 8 U/L (7-52) 12/04/16 17:02 Alkaline Phosphatase 91 U/L (34-104) 12/04/16 17:02 Troponin I 0.02 ng/mL (0.01-0.05) 12/04/16 17:02 Total Protein 8.0 gm/dL (6.0-8.3) 12/04/16 17:02 Albumin 4.1 gm/dL (4.2-5.5) L 12/04/16 17:02 Globulin 3.9 gm/dL 12/04/16 17:02 Albumin/Globulin Ratio 1.1 (1.0-1.8) 12/04/16 17:02 Triglycerides 120 mg/dL (<150) 12/04/16 17:02 Cholesterol 148 mg/dL (<200) 12/04/16 17:02 LDL Cholesterol Direct 97 mg/dL (75-193) 12/04/16 17:02 HDL Cholesterol 37 mg/dL (23-92) 12/04/16 17:02 TSH 2.16 uIU/ml (0.34-5.60) 12/04/16 17:02 RPR NONREACTIVE (NONREACTIVE) 12/04/16 17:02 - Physical Exam Vitals and I&O: Vital Signs Temp 0 F 12/09/16 06:47 Pulse 78 12/08/16 14:00 Resp 20 12/09/16 08:00 BP 128/66 12/08/16 14:00 Pulse Ox 96 12/08/16 14:00 Intake & Output 12/10/16 12/11/16 12/11/16 18:59 06:59 18:59 Intake Total 1200 120 Balance 1200 120 Intake: Oral 1200 120 Other: # Voids 3 # Bowel Movements 1 Active Medications: Current Medications Acetaminophen (Tylenol) 650 mg PO Q6H PRN PRN Reason: Mild Pain/Headache/T above 101 Stop: 02/02/17 22:00 Al Hydrox/Mg Hydrox/Simethicone (Maalox) 30 ml PO Q6H PRN PRN Reason: Dyspepsia Stop: 02/02/17 22:00 Alprazolam (Xanax) 0.5 mg PO TID PRN; Protocol PRN Reason: Anxiety Stop: 02/02/17 22:02 Donepezil HCl (Aricept) 5 mg PO HS GINETTE Stop: 02/06/17 20:59 Last Admin: 12/10/16 20:49 Dose: Not Given Haloperidol (Haldol) 2 mg PO BID GINETTE PRN Reason: Protocol Stop: 02/09/17 16:59 Haloperidol Lactate (Haldol) 2 mg IM BID PRN PRN Reason: IF REFUSES PO HALDOL Stop: 02/09/17 13:14 Lorazepam (Ativan) 1 mg PO Q6H PRN; Protocol PRN Reason: Anxiety/Agitation Stop: 02/02/17 22:00 Last Admin: 12/06/16 10:20 Dose: 1 mg Magnesium Hydroxide (Milk Of Magnesia) 30 ml PO HS PRN PRN Reason: Constipation Stop: 02/02/17 22:00 Zolpidem Tartrate (Ambien) 5 mg PO HS PRN PRN Reason: Insomnia Stop: 02/02/17 22:00 General: Other (Sleeping but arousable) HEENT: Atraumatic Cardiovascular: Regular rate Lungs: Clear to auscultation Abdomen: Bowel sounds, Soft Extremities: Other (No edema) Neurological: Other (Unstable gait ) Skin: Other Psych/Mental Status: Other (Confused, not oriented) Assessment/Plan - Assessment Assessment: Patient is awake, caml in no acute distress, Patient is refusing vitals be taken. Dx: Increased in agitation, S/P CVA, Right hemiparesis, HTN, Dementia - Plan Plan: Patient under psychiatric follow up, Will continue to monitor. Nutritional Asmnt/Malnutr-PDOC - Dietary Evaluation Malnutrition Findings (Please click <Entered> for more info): Nutritional Asmnt/Malnutrition Start: 12/09/16 15: 20 Text: Status: Complete Freq: Document 12/09/16 15:20 GSUN (Rec: 12/09/16 15:38 GSUN [email or web address]) Nutritional Asmnt/Malnutrition Patient General Information Nutritional Screening Moderate Risk Screening Diagnosis Reason for visit: psychosis Pertinent Medical Hx/Surgical Hx CAD, HTN, CVA, dementia, anxiety, psychosis, right hemiparesis, depression Subjective Information 76 year old male from SNF with self inflicted scratches on upper extremities. Pt was confused, pt pointed at his wounds and said "so pretty" several times. Pt stated meals have been good, did not provide any other meaningful responses. Teeth intact. No muscle fat wasting noted. No nutritional concerns per nursing staff. Avg 79% of meals since adm, meeting nutritional needs. Current Diet Order/ Nutrition Support YOLY Pertinent Medications MOM Pertinent Labs Reviewed. Nutritional Hx/Data Height 1.75 m Height (Calculated Centimeters) 175.3 Current Weight (lbs) 86.092 kg Weight (Calculated Kilograms) 86.1 Weight (Calculated Grams) 44844.8 [place] Body Weight 160 Weight Status Overweight GI Symptoms Usual diet at home [facility] [place]: YOLY , peanut butter and jethro sandwich L and D Skin Integrity/Comment: Chris 16. Current %PO Good (75-100%) Estimated Nutritional Goals Calories/Kcals/Kg IBW 160lb/72.7kg Kcals Calculated 1818-2181kcal (25-30kcal/kg) Protein Calculated 73g (1g/kg) Fluid: ml 1818-2181ml (1ml/kcal) Nutritional Problem 1. Problem Problem No nutritional problem at this time. Intervention/Recommendation Comments 1. Continue with current diet order. Avg PO intake is adequate. 2. Remove "peanut butter and jelly" from diet order as pt is meeting nutritional needs from meals. Expected Outcomes/Goals Expected Outcomes/Goals 1. PO intake continue to meet at least 75% of estimated nutritional needs.
--- NOTE | 2016-12-12 09:38 | General Progress Note ---
Subjective - Review of Systems Service Date: 12/12/16 Subjective: Patient is confused Objective - Results Result Diagrams: 12/04/16 17:02 12/04/16 17:02 Recent Labs: Laboratory Last Values WBC 10.3 Th/cmm (4.8-10.8) 12/04/16 17:02 RBC 6.15 Mil/cmm (3.80-5.80) H 12/04/16 17:02 Hgb 16.6 gm/dL (12.6-17.4) 12/04/16 17:02 Hct 51.0 % (39.0-49.0) H 12/04/16 17:02 MCV 83.0 fl (80-99) 12/04/16 17: MCH 27.1 pg (27.0-31.0) 12/04/16 17: MCHC Differential 32.6 pg (28.0-36.0) 12/04/16 17:02 RDW 14.9 % (11.5-20.0) 12/04/16 17:02 Plt Count 214 Th/cmm (150-400) 12/04/16 17:02 MPV 7.9 fl 12/04/16 17:02 Neutrophils (Manual) 75 % (40-80) 12/04/16 17: Lymphocytes 20 % (20-50) 12/04/16 17:02 Monocytes 2 % (2-10) 12/04/16 17:02 Eosinophils 2 % (0-5) 12/04/16 17:02 Basophils 1 % (0-3) 12/04/16 17:02 Platelet Estimate ADEQUATE (NORMAL) 12/04/16 17: Platelet Morphology NORMAL (NORMAL) 12/04/16 17:02 RBC Morph Micro Appear NORMAL (NORMAL) 12/04/16 17:02 PT 10.8 SECONDS (9.5-11.5) 12/04/16 17:02 INR 1.04 (0.5-1.4) 12/04/16 17:02 PTT (Actin FS) 24.1 SECONDS (26.0-38.0) L 12/04/16 17:02 Sodium 137 mEq/L (136-145) 12/04/16 17:02 Potassium 3.6 mEq/L (3.5-5.1) 12/04/16 17:02 Chloride 102 mEq/L (98-107) 12/04/16 17:02 Carbon Dioxide 27.2 mEq/L (21.0-31.0) 12/04/16 17:02 Anion Gap 11.4 (7.0-16.0) 12/04/16 17:02 BUN 17 mg/dL (7-25) 12/04/16 17:02 Creatinine 1.0 mg/dL (0.7-1.3) 12/04/16 17:02 Est GFR ( Amer) TNP 12/04/16 17:02 Est GFR (Non-Af Amer) TNP 12/04/16 17:02 BUN/Creatinine Ratio 17.0 12/04/16 17:02 Glucose 138 mg/dL (70-105) H 12/04/16 17:02 Calcium 9.6 mg/dL (8.6-10.3) 12/04/16 17:02 Total Bilirubin 0.8 mg/dL (0.3-1.0) 12/04/16 17:02 AST 13 U/L (13-39) 12/04/16 17:02 ALT 8 U/L (7-52) 12/04/16 17:02 Alkaline Phosphatase 91 U/L (34-104) 12/04/16 17:02 Troponin I 0.02 ng/mL (0.01-0.05) 12/04/16 17:02 Total Protein 8.0 gm/dL (6.0-8.3) 12/04/16 17:02 Albumin 4.1 gm/dL (4.2-5.5) L 12/04/16 17:02 Globulin 3.9 gm/dL 12/04/16 17:02 Albumin/Globulin Ratio 1.1 (1.0-1.8) 12/04/16 17:02 Triglycerides 120 mg/dL (<150) 12/04/16 17:02 Cholesterol 148 mg/dL (<200) 12/04/16 17:02 LDL Cholesterol Direct 97 mg/dL (75-193) 12/04/16 17:02 HDL Cholesterol 37 mg/dL (23-92) 12/04/16 17:02 TSH 2.16 uIU/ml (0.34-5.60) 12/04/16 17:02 RPR NONREACTIVE (NONREACTIVE) 12/04/16 17:02 - Physical Exam Vitals and I&O: Vital Signs Temp 0 F 12/12/16 07:03 Pulse 78 12/08/16 14:00 Resp 20 12/09/16 08:00 BP 128/66 12/08/16 14:00 Pulse Ox 96 12/08/16 14:00 Intake & Output 12/11/16 12/12/16 12/12/16 18:59 06:59 18:59 Intake Total 950 240 Balance 950 240 Weight (lbs) 86.092 kg Intake: Oral 950 240 Other: # Voids 4 1 3 # Bowel Movements 0 0 Active Medications: Current Medications Acetaminophen (Tylenol) 650 mg PO Q6H PRN PRN Reason: Mild Pain/Headache/T above 101 Stop: 02/02/17 22:00 Al Hydrox/Mg Hydrox/Simethicone (Maalox) 30 ml PO Q6H PRN PRN Reason: Dyspepsia Stop: 02/02/17 22:00 Alprazolam (Xanax) 0.5 mg PO TID PRN; Protocol PRN Reason: Anxiety Stop: 02/02/17 22:02 Donepezil HCl (Aricept) 5 mg PO HS GINETTE Stop: 02/06/17 20:59 Last Admin: 12/11/16 20:38 Dose: 5 mg Haloperidol (Haldol) 2 mg PO BID GINETTE PRN Reason: Protocol Stop: 02/09/17 16:59 Last Admin: 12/12/16 08:52 Dose: 2 mg Haloperidol Lactate (Haldol) 2 mg IM BID PRN PRN Reason: IF REFUSES PO HALDOL Stop: 02/09/17 13:14 Last Admin: 12/11/16 18:53 Dose: 2 mg Lorazepam (Ativan) 1 mg PO Q6H PRN; Protocol PRN Reason: Anxiety/Agitation Stop: 02/02/17 22:00 Last Admin: 12/06/16 10:20 Dose: 1 mg Magnesium Hydroxide (Milk Of Magnesia) 30 ml PO HS PRN PRN Reason: Constipation Stop: 02/02/17 22:00 Zolpidem Tartrate (Ambien) 5 mg PO HS PRN PRN Reason: Insomnia Stop: 02/02/17 22:00 General: Other (Sleeping but arousable) HEENT: Atraumatic Cardiovascular: Regular rate Lungs: Clear to auscultation Abdomen: Bowel sounds, Soft Extremities: Other (No edema) Neurological: Other (Unstable gait ) Skin: Other Psych/Mental Status: Other (Confused, not oriented) Assessment/Plan - Assessment Assessment: Patient is awake, caml in no acute distress, Patient is refusing vitals be taken. Dx: Increased in agitation, S/P CVA, Right hemiparesis, HTN, Dementia - Plan Plan: Patient under psychiatric follow up, Will continue to monitor. Nutritional Asmnt/Malnutr-PDOC - Dietary Evaluation Malnutrition Findings (Please click <Entered> for more info): Nutritional Asmnt/Malnutrition Start: 12/09/16 15: 20 Text: Status: Complete Freq: Document 12/09/16 15:20 GSUN (Rec: 12/09/16 15:38 GSUN [email or web address]) Nutritional Asmnt/Malnutrition Patient General Information Nutritional Screening Moderate Risk Screening Diagnosis Reason for visit: psychosis Pertinent Medical Hx/Surgical Hx CAD, HTN, CVA, dementia, anxiety, psychosis, right hemiparesis, depression Subjective Information 76 year old male from SNF with self inflicted scratches on upper extremities. Pt was confused, pt pointed at his wounds and said "so pretty" several times. Pt stated meals have been good, did not provide any other meaningful responses. Teeth intact. No muscle fat wasting noted. No nutritional concerns per nursing staff. Avg 79% of meals since adm, meeting nutritional needs. Current Diet Order/ Nutrition Support YOLY Pertinent Medications MOM Pertinent Labs Reviewed. Nutritional Hx/Data Height 1.75 m Height (Calculated Centimeters) 175.3 Current Weight (lbs) 86.092 kg Weight (Calculated Kilograms) 86.1 Weight (Calculated Grams) 47439.8 Micro Body Weight 160 Weight Status Overweight GI Symptoms Usual diet at home [facility] [place]: YOLY , peanut butter and jethro sandwich L and D Skin Integrity/Comment: Chris 16. Current %PO Good (75-100%) Estimated Nutritional Goals Calories/Kcals/Kg IBW 160lb/72.7kg Kcals Calculated 1818-2181kcal (25-30kcal/kg) Protein Calculated 73g (1g/kg) Fluid: ml 1818-2181ml (1ml/kcal) Nutritional Problem 1. Problem Problem No nutritional problem at this time. Intervention/Recommendation Comments 1. Continue with current diet order. Avg PO intake is adequate. 2. Remove "peanut butter and jelly" from diet order as pt is meeting nutritional needs from meals. Expected Outcomes/Goals Expected Outcomes/Goals 1. PO intake continue to meet at least 75% of estimated nutritional needs.
--- NOTE | 2016-12-12 16:24 | Progress Notes ---
DATE: 12/11/2016 Case discussed with staff of the patient, reviewed records. Also have a proper closing today, it was upheld for the hold and he was kept on the 5250 on grand disability and the [place] was upheld. The patient will be started on medication. The patient did not attend the [place] hearing. The patient continues to have poor insight. Unable to make safe plan for self-care. Continues to be unable to participate in meaningful conversation. He is sleeping well. Appetite varies. I will be initiating the patient on taking him out of the Zyprexa and start like giving the Haldol and stop Zyprexa intramuscular because of possible great reaction and we will continue to work with the patient in group therapy, milieu therapy, and adjust the medications as needed. JOB# [id number]
--- NOTE | 2016-12-13 10:08 | General Progress Note ---
Subjective - Review of Systems Service Date: 12/13/16 Subjective: Patient is confused Objective - Results Result Diagrams: 12/04/16 17:02 12/04/16 17:02 Recent Labs: Laboratory Last Values WBC 10.3 Th/cmm (4.8-10.8) 12/04/16 17:02 RBC 6.15 Mil/cmm (3.80-5.80) H 12/04/16 17:02 Hgb 16.6 gm/dL (12.6-17.4) 12/04/16 17:02 Hct 51.0 % (39.0-49.0) H 12/04/16 17:02 MCV 83.0 fl (80-99) 12/04/16 17: MCH 27.1 pg (27.0-31.0) 12/04/16 17: MCHC Differential 32.6 pg (28.0-36.0) 12/04/16 17:02 RDW 14.9 % (11.5-20.0) 12/04/16 17:02 Plt Count 214 Th/cmm (150-400) 12/04/16 17:02 MPV 7.9 fl 12/04/16 17:02 Neutrophils (Manual) 75 % (40-80) 12/04/16 17: Lymphocytes 20 % (20-50) 12/04/16 17:02 Monocytes 2 % (2-10) 12/04/16 17:02 Eosinophils 2 % (0-5) 12/04/16 17:02 Basophils 1 % (0-3) 12/04/16 17:02 Platelet Estimate ADEQUATE (NORMAL) 12/04/16 17: Platelet Morphology NORMAL (NORMAL) 12/04/16 17: RBC Morph Micro Appear NORMAL (NORMAL) 12/04/16 17:02 PT 10.8 SECONDS (9.5-11.5) 12/04/16 17:02 INR 1.04 (0.5-1.4) 12/04/16 17:02 PTT (Actin FS) 24.1 SECONDS (26.0-38.0) L 12/04/16 17:02 Sodium 137 mEq/L (136-145) 12/04/16 17:02 Potassium 3.6 mEq/L (3.5-5.1) 12/04/16 17:02 Chloride 102 mEq/L (98-107) 12/04/16 17:02 Carbon Dioxide 27.2 mEq/L (21.0-31.0) 12/04/16 17:02 Anion Gap 11.4 (7.0-16.0) 12/04/16 17:02 BUN 17 mg/dL (7-25) 12/04/16 17:02 Creatinine 1.0 mg/dL (0.7-1.3) 12/04/16 17:02 Est GFR ( Amer) TNP 12/04/16 17:02 Est GFR (Non-Af Amer) TNP 12/04/16 17:02 BUN/Creatinine Ratio 17.0 12/04/16 17:02 Glucose 138 mg/dL (70-105) H 12/04/16 17:02 Calcium 9.6 mg/dL (8.6-10.3) 12/04/16 17:02 Total Bilirubin 0.8 mg/dL (0.3-1.0) 12/04/16 17:02 AST 13 U/L (13-39) 12/04/16 17:02 ALT 8 U/L (7-52) 12/04/16 17:02 Alkaline Phosphatase 91 U/L (34-104) 12/04/16 17:02 Troponin I 0.02 ng/mL (0.01-0.05) 12/04/16 17:02 Total Protein 8.0 gm/dL (6.0-8.3) 12/04/16 17:02 Albumin 4.1 gm/dL (4.2-5.5) L 12/04/16 17:02 Globulin 3.9 gm/dL 12/04/16 17:02 Albumin/Globulin Ratio 1.1 (1.0-1.8) 12/04/16 17:02 Triglycerides 120 mg/dL (<150) 12/04/16 17:02 Cholesterol 148 mg/dL (<200) 12/04/16 17:02 LDL Cholesterol Direct 97 mg/dL (75-193) 12/04/16 17:02 HDL Cholesterol 37 mg/dL (23-92) 12/04/16 17:02 TSH 2.16 uIU/ml (0.34-5.60) 12/04/16 17:02 RPR NONREACTIVE (NONREACTIVE) 12/04/16 17:02 - Physical Exam Vitals and I&O: Vital Signs Temp 97.4 F 12/13/16 06:34 Pulse 82 12/13/16 06:34 Resp 19 12/13/16 06:34 BP 140/78 12/13/16 06:34 Pulse Ox 98 12/13/16 06:34 Intake & Output 12/12/16 12/13/16 12/13/16 18:59 06:59 18:59 Intake Total 2400 120 Output Total 200 Balance 2200 120 Weight (lbs) 86.092 kg Intake: Oral 2400 120 Output: Urine 200 Other: # Voids 2 3 # Bowel Movements 1 Active Medications: Current Medications Acetaminophen (Tylenol) 650 mg PO Q6H PRN PRN Reason: Mild Pain/Headache/T above 101 Stop: 02/02/17 22:00 Al Hydrox/Mg Hydrox/Simethicone (Maalox) 30 ml PO Q6H PRN PRN Reason: Dyspepsia Stop: 02/02/17 22:00 Alprazolam (Xanax) 0.5 mg PO TID PRN; Protocol PRN Reason: Anxiety Stop: 02/02/17 22:02 Donepezil HCl (Aricept) 5 mg PO HS GINETTE Stop: 02/06/17 20:59 Last Admin: 12/12/16 20:32 Dose: 5 mg Haloperidol (Haldol) 2 mg PO BID GINETTE PRN Reason: Protocol Stop: 02/09/17 16:59 Last Admin: 12/13/16 08:18 Dose: 2 mg Haloperidol Lactate (Haldol) 2 mg IM BID PRN PRN Reason: IF REFUSES PO HALDOL Stop: 02/09/17 13:14 Last Admin: 12/11/16 18:53 Dose: 2 mg Lorazepam (Ativan) 1 mg PO Q6H PRN; Protocol PRN Reason: Anxiety/Agitation Stop: 02/02/17 22:00 Last Admin: 12/06/16 10:20 Dose: 1 mg Magnesium Hydroxide (Milk Of Magnesia) 30 ml PO HS PRN PRN Reason: Constipation Stop: 02/02/17 22:00 Zolpidem Tartrate (Ambien) 5 mg PO HS PRN PRN Reason: Insomnia Stop: 02/02/17 22:00 General: Other (Sleeping but arousable) HEENT: Atraumatic Cardiovascular: Regular rate Lungs: Clear to auscultation Abdomen: Bowel sounds, Soft Extremities: Other (No edema) Neurological: Other (Unstable gait ) Skin: Other Psych/Mental Status: Other (Confused, not oriented) Assessment/Plan - Assessment Assessment: Patient is awake, caml in no acute distress, Patient is refusing vitals be taken. Dx: Increased in agitation, S/P CVA, Right hemiparesis, HTN, Dementia - Plan Plan: Patient under psychiatric follow up, Will continue to monitor. Nutritional Asmnt/Malnutr-PDOC - Dietary Evaluation Malnutrition Findings (Please click <Entered> for more info): Nutritional Asmnt/Malnutrition Start: 12/09/16 15: 20 Text: Status: Complete Freq: Document 12/09/16 15:20 GSUN (Rec: 12/09/16 15:38 GSUN [email or web address]) Nutritional Asmnt/Malnutrition Patient General Information Nutritional Screening Moderate Risk Screening Diagnosis Reason for visit: psychosis Pertinent Medical Hx/Surgical Hx CAD, HTN, CVA, dementia, anxiety, psychosis, right hemiparesis, depression Subjective Information 76 year old male from SNF with self inflicted scratches on upper extremities. Pt was confused, pt pointed at his wounds and said "so pretty" several times. Pt stated meals have been good, did not provide any other meaningful responses. Teeth intact. No muscle fat wasting noted. No nutritional concerns per nursing staff. Avg 79% of meals since adm, meeting nutritional needs. Current Diet Order/ Nutrition Support YOLY Pertinent Medications MOM Pertinent Labs Reviewed. Nutritional Hx/Data Height 1.75 m Height (Calculated Centimeters) 175.3 Current Weight (lbs) 86.092 kg Weight (Calculated Kilograms) 86.1 Weight (Calculated Grams) 65352.8 [place] Body Weight 160 Weight Status Overweight GI Symptoms Usual diet at home [facility] [facility] [place]: YOLY , peanut butter and jethro sandwich L and D Skin Integrity/Comment: Chris [place]. Current %PO Good (75-100%) Estimated Nutritional Goals Calories/Kcals/Kg IBW 160lb/72.7kg Kcals Calculated 1818-2181kcal (25-30kcal/kg) Protein Calculated 73g (1g/kg) Fluid: ml 1818-2181ml (1ml/kcal) Nutritional Problem 1. Problem Problem No nutritional problem at this time. Intervention/Recommendation Comments 1. Continue with current diet order. Avg PO intake is adequate. 2. Remove "peanut butter and jelly" from diet order as pt is meeting nutritional needs from meals. Expected Outcomes/Goals Expected Outcomes/Goals 1. PO intake continue to meet at least 75% of estimated nutritional needs.
--- NOTE | 2016-12-13 20:57 | Progress Notes ---
DATE: 12/12/2016 Case was discussed with staff of the patient, reviewed records. The patient was changed to Haldol because I only gave him Zyprexa injection. The patient had a healing history of ____ started on Haldol. He is still unpredictable, impulsive, trying to refuse medication. He is staying in bed mostly, unable to make safe plan for self-care. No side effects with the medications so far no sedation, no nausea, no extrapyramidal symptoms. I will continue the patient in group therapy, milieu therapy, adjust medication as needed. JOB# [id number]
--- NOTE | 2016-12-14 05:03 | Progress Notes ---
DATE: 12/13/2016 Case was discussed with staff of the patient, reviewed records. The patient was refusing medication yesterday and he gets it by injection now that he has reach such a state he took it today. He is still unpredictable, impulsive, unable to carrying out conversation or make safe plan for self-care. Continues to have poor insight. No side effects with the medication, no sedation, no nausea, no extrapyramidal symptoms. We will schedule patient in group therapy, milieu therapy, adjust medication as needed. JOB# [id number]
--- NOTE | 2016-12-14 08:44 | General Progress Note ---
Subjective - Review of Systems Service Date: 12/14/16 Subjective: Patient is confused Objective - Results Result Diagrams: 12/04/16 17:02 12/04/16 17:02 Recent Labs: Laboratory Last Values WBC 10.3 Th/cmm (4.8-10.8) 12/04/16 17:02 RBC 6.15 Mil/cmm (3.80-5.80) H 12/04/16 17:02 Hgb 16.6 gm/dL (12.6-17.4) 12/04/16 17:02 Hct 51.0 % (39.0-49.0) H 12/04/16 17:02 MCV 83.0 fl (80-99) 12/04/16 17: MCH 27.1 pg (27.0-31.0) 12/04/16 17: MCHC Differential 32.6 pg (28.0-36.0) 12/04/16 17:02 RDW 14.9 % (11.5-20.0) 12/04/16 17:02 Plt Count 214 Th/cmm (150-400) 12/04/16 17:02 MPV 7.9 fl 12/04/16 17:02 Neutrophils (Manual) 75 % (40-80) 12/04/16 17: Lymphocytes 20 % (20-50) 12/04/16 17:02 Monocytes 2 % (2-10) 12/04/16 17:02 Eosinophils 2 % (0-5) 12/04/16 17:02 Basophils 1 % (0-3) 12/04/16 17:02 Platelet Estimate ADEQUATE (NORMAL) 12/04/16 17: Platelet Morphology NORMAL (NORMAL) 12/04/16 17:02 RBC Morph Micro Appear NORMAL (NORMAL) 12/04/16 17:02 PT 10.8 SECONDS (9.5-11.5) 12/04/16 17:02 INR 1.04 (0.5-1.4) 12/04/16 17:02 PTT (Actin FS) 24.1 SECONDS (26.0-38.0) L 12/04/16 17:02 Sodium 137 mEq/L (136-145) 12/04/16 17:02 Potassium 3.6 mEq/L (3.5-5.1) 12/04/16 17:02 Chloride 102 mEq/L (98-107) 12/04/16 17:02 Carbon Dioxide 27.2 mEq/L (21.0-31.0) 12/04/16 17:02 Anion Gap 11.4 (7.0-16.0) 12/04/16 17:02 BUN 17 mg/dL (7-25) 12/04/16 17:02 Creatinine 1.0 mg/dL (0.7-1.3) 12/04/16 17:02 Est GFR ( Amer) TNP 12/04/16 17:02 Est GFR (Non-Af Amer) TNP 12/04/16 17:02 BUN/Creatinine Ratio 17.0 12/04/16 17:02 Glucose 138 mg/dL (70-105) H 12/04/16 17:02 Calcium 9.6 mg/dL (8.6-10.3) 12/04/16 17:02 Total Bilirubin 0.8 mg/dL (0.3-1.0) 12/04/16 17:02 AST 13 U/L (13-39) 12/04/16 17:02 ALT 8 U/L (7-52) 12/04/16 17:02 Alkaline Phosphatase 91 U/L (34-104) 12/04/16 17:02 Troponin I 0.02 ng/mL (0.01-0.05) 12/04/16 17:02 Total Protein 8.0 gm/dL (6.0-8.3) 12/04/16 17:02 Albumin 4.1 gm/dL (4.2-5.5) L 12/04/16 17:02 Globulin 3.9 gm/dL 12/04/16 17:02 Albumin/Globulin Ratio 1.1 (1.0-1.8) 12/04/16 17:02 Triglycerides 120 mg/dL (<150) 12/04/16 17:02 Cholesterol 148 mg/dL (<200) 12/04/16 17:02 LDL Cholesterol Direct 97 mg/dL (75-193) 12/04/16 17:02 HDL Cholesterol 37 mg/dL (23-92) 12/04/16 17:02 TSH 2.16 uIU/ml (0.34-5.60) 12/04/16 17:02 RPR NONREACTIVE (NONREACTIVE) 12/04/16 17:02 - Physical Exam Vitals and I&O: Vital Signs Temp 0 F 12/14/16 06:48 Pulse 82 12/13/16 06:34 Resp 20 12/13/16 20:00 BP 140/78 12/13/16 06:34 Pulse Ox 98 12/13/16 06:34 Intake & Output 12/13/16 12/14/16 12/14/16 18:59 06:59 18:59 Intake Total 900 Balance 900 Weight (lbs) 86.092 kg Intake: Oral 900 Other: # Voids 4 3 # Bowel Movements 0 0 Active Medications: Current Medications Acetaminophen (Tylenol) 650 mg PO Q6H PRN PRN Reason: Mild Pain/Headache/T above 101 Stop: 02/02/17 22:00 Al Hydrox/Mg Hydrox/Simethicone (Maalox) 30 ml PO Q6H PRN PRN Reason: Dyspepsia Stop: 02/02/17 22:00 Alprazolam (Xanax) 0.5 mg PO TID PRN; Protocol PRN Reason: Anxiety Stop: 02/02/17 22:02 Donepezil HCl (Aricept) 5 mg PO HS GINETTE Stop: 02/06/17 20:59 Last Admin: 12/13/16 20:37 Dose: 5 mg Haloperidol (Haldol) 2 mg PO BID GINETTE PRN Reason: Protocol Stop: 02/09/17 16:59 Last Admin: 12/14/16 08:32 Dose: 2 mg Haloperidol Lactate (Haldol) 2 mg IM BID PRN PRN Reason: IF REFUSES PO HALDOL Stop: 02/09/17 13:14 Last Admin: 12/11/16 18:53 Dose: 2 mg Lorazepam (Ativan) 1 mg PO Q6H PRN; Protocol PRN Reason: Anxiety/Agitation Stop: 02/02/17 22:00 Last Admin: 12/06/16 10:20 Dose: 1 mg Magnesium Hydroxide (Milk Of Magnesia) 30 ml PO HS PRN PRN Reason: Constipation Stop: 02/02/17 22:00 Zolpidem Tartrate (Ambien) 5 mg PO HS PRN PRN Reason: Insomnia Stop: 02/02/17 22:00 General: Alert, Other (Confused, not oriented) HEENT: Atraumatic Neck: Supple Cardiovascular: Regular rate Lungs: Clear to auscultation Abdomen: Bowel sounds, Soft Extremities: Other (No edema) Neurological: Other (Unstable gait ) Skin: Other Psych/Mental Status: Other (Confused, not oriented) Assessment/Plan - Assessment Assessment: Patient is awake, calm in no acute distress, Patient is refusing vitals be taken. Dx: Increased in agitation, S/P CVA, Right hemiparesis, HTN, Dementia - Plan Plan: Patient under psychiatric follow up, Will continue to monitor. Nutritional Asmnt/Malnutr-PDOC - Dietary Evaluation Malnutrition Findings (Please click <Entered> for more info): Nutritional Asmnt/Malnutrition Start: 12/09/16 15: 20 Text: Status: Complete Freq: Document 12/09/16 15:20 GSUN (Rec: 12/09/16 15:38 GSUN [email or web address]) Nutritional Asmnt/Malnutrition Patient General Information Nutritional Screening Moderate Risk Screening Diagnosis Reason for visit: psychosis Pertinent Medical Hx/Surgical Hx CAD, HTN, CVA, dementia, anxiety, psychosis, right hemiparesis, depression Subjective Information 76 year old male from SNF with self inflicted scratches on upper extremities. Pt was confused, pt pointed at his wounds and said "so pretty" several times. Pt stated meals have been good, did not provide any other meaningful responses. Teeth intact. No muscle fat wasting noted. No nutritional concerns per nursing staff. Avg 79% of meals since adm, meeting nutritional needs. Current Diet Order/ Nutrition Support YOLY Pertinent Medications MOM Pertinent Labs Reviewed. Nutritional Hx/Data Height 1.75 m Height (Calculated Centimeters) 175.3 Current Weight (lbs) 86.092 kg Weight (Calculated Kilograms) 86.1 Weight (Calculated Grams) 47385.8 [place] Body Weight 160 Weight Status Overweight GI Symptoms Usual diet at home [facility] [place]: YOLY , peanut butter and jethro sandwich L and D Skin Integrity/Comment: Chris 16. Current %PO Good (75-100%) Estimated Nutritional Goals Calories/Kcals/Kg IBW 160lb/72.7kg Kcals Calculated 1818-2181kcal (25-30kcal/kg) Protein Calculated 73g (1g/kg) Fluid: ml 1818-2181ml (1ml/kcal) Nutritional Problem 1. Problem Problem No nutritional problem at this time. Intervention/Recommendation Comments 1. Continue with current diet order. Avg PO intake is adequate. 2. Remove "peanut butter and jelly" from diet order as pt is meeting nutritional needs from meals. Expected Outcomes/Goals Expected Outcomes/Goals 1. PO intake continue to meet at least 75% of estimated nutritional needs.
--- NOTE | 2016-12-15 02:43 | Progress Notes ---
DATE: 12/14/2016 Case was discussed with staff of the patient, reviewed records. The patient continues staying in bed, continues to be unable to carry any conversation or make safe plan for self-care. Continues to have poor insight. Sleeping well and eating well according to the staff. No side effects with the medication, no sedation, no nausea, no extrapyramidal symptoms. We will continue with the patient in group therapy, milieu therapy, adjust medication as needed. JOB# [id number]
--- NOTE | 2016-12-15 08:40 | General Progress Note ---
Subjective - Review of Systems Service Date: 12/15/16 Subjective: Patient is confused Objective - Results Result Diagrams: 12/04/16 17:02 12/04/16 17:02 Recent Labs: Laboratory Last Values WBC 10.3 Th/cmm (4.8-10.8) 12/04/16 17:02 RBC 6.15 Mil/cmm (3.80-5.80) H 12/04/16 17:02 Hgb 16.6 gm/dL (12.6-17.4) 12/04/16 17:02 Hct 51.0 % (39.0-49.0) H 12/04/16 17:02 MCV 83.0 fl (80-99) 12/04/16 17: MCH 27.1 pg (27.0-31.0) 12/04/16 17: MCHC Differential 32.6 pg (28.0-36.0) 12/04/16 17:02 RDW 14.9 % (11.5-20.0) 12/04/16 17:02 Plt Count 214 Th/cmm (150-400) 12/04/16 17:02 MPV 7.9 fl 12/04/16 17:02 Neutrophils (Manual) 75 % (40-80) 12/04/16 17: Lymphocytes 20 % (20-50) 12/04/16 17:02 Monocytes 2 % (2-10) 12/04/16 17:02 Eosinophils 2 % (0-5) 12/04/16 17:02 Basophils 1 % (0-3) 12/04/16 17:02 Platelet Estimate ADEQUATE (NORMAL) 12/04/16 17: Platelet Morphology NORMAL (NORMAL) 12/04/16 17:02 RBC Morph Micro Appear NORMAL (NORMAL) 12/04/16 17:02 PT 10.8 SECONDS (9.5-11.5) 12/04/16 17:02 INR 1.04 (0.5-1.4) 12/04/16 17:02 PTT (Actin FS) 24.1 SECONDS (26.0-38.0) L 12/04/16 17:02 Sodium 137 mEq/L (136-145) 12/04/16 17:02 Potassium 3.6 mEq/L (3.5-5.1) 12/04/16 17:02 Chloride 102 mEq/L (98-107) 12/04/16 17:02 Carbon Dioxide 27.2 mEq/L (21.0-31.0) 12/04/16 17:02 Anion Gap 11.4 (7.0-16.0) 12/04/16 17:02 BUN 17 mg/dL (7-25) 12/04/16 17:02 Creatinine 1.0 mg/dL (0.7-1.3) 12/04/16 17:02 Est GFR ( Amer) TNP 12/04/16 17:02 Est GFR (Non-Af Amer) TNP 12/04/16 17:02 BUN/Creatinine Ratio 17.0 12/04/16 17:02 Glucose 138 mg/dL (70-105) H 12/04/16 17:02 Calcium 9.6 mg/dL (8.6-10.3) 12/04/16 17:02 Total Bilirubin 0.8 mg/dL (0.3-1.0) 12/04/16 17:02 AST 13 U/L (13-39) 12/04/16 17:02 ALT 8 U/L (7-52) 12/04/16 17:02 Alkaline Phosphatase 91 U/L (34-104) 12/04/16 17:02 Troponin I 0.02 ng/mL (0.01-0.05) 12/04/16 17:02 Total Protein 8.0 gm/dL (6.0-8.3) 12/04/16 17:02 Albumin 4.1 gm/dL (4.2-5.5) L 12/04/16 17:02 Globulin 3.9 gm/dL 12/04/16 17:02 Albumin/Globulin Ratio 1.1 (1.0-1.8) 12/04/16 17:02 Triglycerides 120 mg/dL (<150) 12/04/16 17:02 Cholesterol 148 mg/dL (<200) 12/04/16 17:02 LDL Cholesterol Direct 97 mg/dL (75-193) 12/04/16 17:02 HDL Cholesterol 37 mg/dL (23-92) 12/04/16 17:02 TSH 2.16 uIU/ml (0.34-5.60) 12/04/16 17:02 RPR NONREACTIVE (NONREACTIVE) 12/04/16 17:02 - Physical Exam Vitals and I&O: Vital Signs Temp 0 F 12/14/16 19:58 Pulse 82 12/13/16 06:34 Resp 20 12/13/16 20:00 BP 140/78 12/13/16 06:34 Pulse Ox 98 12/13/16 06:34 Intake & Output 12/14/16 12/15/16 12/15/16 18:59 06:59 18:59 Intake Total 600 300 Balance 600 300 Weight (lbs) 86.092 kg Intake: Oral 600 300 Other: # Voids 3 1 # Bowel Movements 1 0 Active Medications: Current Medications Acetaminophen (Tylenol) 650 mg PO Q6H PRN PRN Reason: Mild Pain/Headache/T above 101 Stop: 02/02/17 22:00 Al Hydrox/Mg Hydrox/Simethicone (Maalox) 30 ml PO Q6H PRN PRN Reason: Dyspepsia Stop: 02/02/17 22:00 Alprazolam (Xanax) 0.5 mg PO TID PRN; Protocol PRN Reason: Anxiety Stop: 02/02/17 22:02 Donepezil HCl (Aricept) 5 mg PO HS GINETTE Stop: 02/06/17 20:59 Last Admin: 12/14/16 20:54 Dose: 5 mg Haloperidol (Haldol) 2 mg PO BID GINETTE PRN Reason: Protocol Stop: 02/09/17 16:59 Last Admin: 12/14/16 17:00 Dose: 2 mg Haloperidol Lactate (Haldol) 2 mg IM BID PRN PRN Reason: IF REFUSES PO HALDOL Stop: 02/09/17 13:14 Last Admin: 12/11/16 18:53 Dose: 2 mg Lorazepam (Ativan) 1 mg PO Q6H PRN; Protocol PRN Reason: Anxiety/Agitation Stop: 02/02/17 22:00 Last Admin: 12/06/16 10:20 Dose: 1 mg Magnesium Hydroxide (Milk Of Magnesia) 30 ml PO HS PRN PRN Reason: Constipation Stop: 02/02/17 22:00 Zolpidem Tartrate (Ambien) 5 mg PO HS PRN PRN Reason: Insomnia Stop: 02/02/17 22:00 General: Alert, Other (Confused, not oriented) HEENT: Atraumatic Neck: Supple Cardiovascular: Regular rate Lungs: Clear to auscultation Abdomen: Bowel sounds, Soft Extremities: Other (No edema) Neurological: Other (Unstable gait ) Skin: Other Psych/Mental Status: Other (Confused, not oriented) Assessment/Plan - Assessment Assessment: Patient is awake, calm in no acute distress, Patient is refusing vitals be taken. Dx: Increased in agitation, S/P CVA, Right hemiparesis, HTN, Dementia - Plan Plan: Patient under psychiatric follow up, Will continue to monitor. Nutritional Asmnt/Malnutr-PDOC - Dietary Evaluation Malnutrition Findings (Please click <Entered> for more info): Nutritional Asmnt/Malnutrition Start: 12/09/16 15: 20 Text: Status: Complete Freq: Document 12/09/16 15:20 GSUN (Rec: 12/09/16 15:38 GSUN [email or web address]) Nutritional Asmnt/Malnutrition Patient General Information Nutritional Screening Moderate Risk Screening Diagnosis Reason for visit: psychosis Pertinent Medical Hx/Surgical Hx CAD, HTN, CVA, dementia, anxiety, psychosis, right hemiparesis, depression Subjective Information 76 year old male from SNF with self inflicted scratches on upper extremities. Pt was confused, pt pointed at his wounds and said "so pretty" several times. Pt stated meals have been good, did not provide any other meaningful responses. Teeth intact. No muscle fat wasting noted. No nutritional concerns per nursing staff. Avg 79% of meals since adm, meeting nutritional needs. Current Diet Order/ Nutrition Support YOLY Pertinent Medications MOM Pertinent Labs Reviewed. Nutritional Hx/Data Height 1.75 m Height (Calculated Centimeters) 175.3 Current Weight (lbs) 86.092 kg Weight (Calculated Kilograms) 86.1 Weight (Calculated Grams) 82161.8 [place] Body Weight 160 Weight Status Overweight GI Symptoms Usual diet at home [facility] [place]: YOLY , peanut butter and jethro sandwich L and D Skin Integrity/Comment: Chris 16. Current %PO Good (75-100%) Estimated Nutritional Goals Calories/Kcals/Kg IBW 160lb/72.7kg Kcals Calculated 1818-2181kcal (25-30kcal/kg) Protein Calculated 73g (1g/kg) Fluid: ml 1818-2181ml (1ml/kcal) Nutritional Problem 1. Problem Problem No nutritional problem at this time. Intervention/Recommendation Comments 1. Continue with current diet order. Avg PO intake is adequate. 2. Remove "peanut butter and jelly" from diet order as pt is meeting nutritional needs from meals. Expected Outcomes/Goals Expected Outcomes/Goals 1. PO intake continue to meet at least 75% of estimated nutritional needs.
--- NOTE | 2016-12-16 02:03 | Progress Notes ---
DATE: 12/15/2016 Case was discussed with staff of the patient, reviewed records. The patient continues to stay in bed, but staff report, he is taking his medication. Continues to have poor insight. Continues to be unable to make safe plan for self-care. Unpredictable, impulsive, needing redirection. He is sleeping better, eating better. No side effects with the medication, no sedation, no nausea and we will continue to work with the patient in group therapy, milieu therapy, adjust medications as needed. JOB# [id number]
--- NOTE | 2016-12-16 08:30 | General Progress Note ---
Subjective - Review of Systems Service Date: 12/16/16 Subjective: Patient is confused Objective - Results Result Diagrams: 12/04/16 17:02 12/04/16 17:02 Recent Labs: Laboratory Last Values WBC 10.3 Th/cmm (4.8-10.8) 12/04/16 17:02 RBC 6.15 Mil/cmm (3.80-5.80) H 12/04/16 17:02 Hgb 16.6 gm/dL (12.6-17.4) 12/04/16 17:02 Hct 51.0 % (39.0-49.0) H 12/04/16 17:02 MCV 83.0 fl (80-99) 12/04/16 17: MCH 27.1 pg (27.0-31.0) 12/04/16 17: MCHC Differential 32.6 pg (28.0-36.0) 12/04/16 17:02 RDW 14.9 % (11.5-20.0) 12/04/16 17:02 Plt Count 214 Th/cmm (150-400) 12/04/16 17:02 MPV 7.9 fl 12/04/16 17:02 Neutrophils (Manual) 75 % (40-80) 12/04/16 17: Lymphocytes 20 % (20-50) 12/04/16 17:02 Monocytes 2 % (2-10) 12/04/16 17:02 Eosinophils 2 % (0-5) 12/04/16 17:02 Basophils 1 % (0-3) 12/04/16 17:02 Platelet Estimate ADEQUATE (NORMAL) 12/04/16 17: Platelet Morphology NORMAL (NORMAL) 12/04/16 17:02 RBC Morph Micro Appear NORMAL (NORMAL) 12/04/16 17:02 PT 10.8 SECONDS (9.5-11.5) 12/04/16 17:02 INR 1.04 (0.5-1.4) 12/04/16 17:02 PTT (Actin FS) 24.1 SECONDS (26.0-38.0) L 12/04/16 17:02 Sodium 137 mEq/L (136-145) 12/04/16 17:02 Potassium 3.6 mEq/L (3.5-5.1) 12/04/16 17:02 Chloride 102 mEq/L (98-107) 12/04/16 17:02 Carbon Dioxide 27.2 mEq/L (21.0-31.0) 12/04/16 17:02 Anion Gap 11.4 (7.0-16.0) 12/04/16 17:02 BUN 17 mg/dL (7-25) 12/04/16 17:02 Creatinine 1.0 mg/dL (0.7-1.3) 12/04/16 17:02 Est GFR ( Amer) TNP 12/04/16 17:02 Est GFR (Non-Af Amer) TNP 12/04/16 17:02 BUN/Creatinine Ratio 17.0 12/04/16 17:02 Glucose 138 mg/dL (70-105) H 12/04/16 17:02 Calcium 9.6 mg/dL (8.6-10.3) 12/04/16 17:02 Total Bilirubin 0.8 mg/dL (0.3-1.0) 12/04/16 17:02 AST 13 U/L (13-39) 12/04/16 17:02 ALT 8 U/L (7-52) 12/04/16 17:02 Alkaline Phosphatase 91 U/L (34-104) 12/04/16 17:02 Troponin I 0.02 ng/mL (0.01-0.05) 12/04/16 17:02 Total Protein 8.0 gm/dL (6.0-8.3) 12/04/16 17:02 Albumin 4.1 gm/dL (4.2-5.5) L 12/04/16 17:02 Globulin 3.9 gm/dL 12/04/16 17:02 Albumin/Globulin Ratio 1.1 (1.0-1.8) 12/04/16 17:02 Triglycerides 120 mg/dL (<150) 12/04/16 17:02 Cholesterol 148 mg/dL (<200) 12/04/16 17:02 LDL Cholesterol Direct 97 mg/dL (75-193) 12/04/16 17:02 HDL Cholesterol 37 mg/dL (23-92) 12/04/16 17:02 TSH 2.16 uIU/ml (0.34-5.60) 12/04/16 17:02 RPR NONREACTIVE (NONREACTIVE) 12/04/16 17:02 - Physical Exam Vitals and I&O: Vital Signs Temp 97.7 F 12/16/16 06:45 Pulse 66 12/16/16 06:45 Resp 20 12/16/16 06:45 BP 185/95 12/16/16 06:45 Pulse Ox 94 12/16/16 06:45 Intake & Output 12/15/16 12/16/16 12/16/16 18:59 06:59 18:59 Intake Total 1000 Balance 1000 Weight (lbs) 86.069 kg Intake: Oral 1000 Other: # Voids 4 3 # Bowel Movements 0 0 Active Medications: Current Medications Acetaminophen (Tylenol) 650 mg PO Q6H PRN PRN Reason: Mild Pain/Headache/T above 101 Stop: 02/02/17 22:00 Al Hydrox/Mg Hydrox/Simethicone (Maalox) 30 ml PO Q6H PRN PRN Reason: Dyspepsia Stop: 02/02/17 22:00 Alprazolam (Xanax) 0.5 mg PO TID PRN; Protocol PRN Reason: Anxiety Stop: 02/02/17 22:02 Captopril (Capoten 25 Mg Tab) 25 mg PO BID GINETTE Stop: 02/14/17 08:59 Donepezil HCl (Aricept) 5 mg PO HS GINETTE Stop: 02/06/17 20:59 Last Admin: 12/15/16 20:13 Dose: 5 mg Haloperidol (Haldol) 2 mg PO BID GINETTE PRN Reason: Protocol Stop: 02/09/17 16:59 Last Admin: 12/15/16 17:50 Dose: 2 mg Haloperidol Lactate (Haldol) 2 mg IM BID PRN PRN Reason: IF REFUSES PO HALDOL Stop: 02/09/17 13:14 Last Admin: 12/11/16 18:53 Dose: 2 mg Lorazepam (Ativan) 1 mg PO Q6H PRN; Protocol PRN Reason: Anxiety/Agitation Stop: 02/02/17 22:00 Last Admin: 12/15/16 20:13 Dose: 1 mg Magnesium Hydroxide (Milk Of Magnesia) 30 ml PO HS PRN PRN Reason: Constipation Stop: 02/02/17 22:00 Zolpidem Tartrate (Ambien) 5 mg PO HS PRN PRN Reason: Insomnia Stop: 02/02/17 22:00 General: Alert, Other (Confused, not oriented) HEENT: Atraumatic Neck: Supple Cardiovascular: Regular rate Lungs: Clear to auscultation Abdomen: Bowel sounds, Soft Extremities: Other (No edema) Neurological: Other (Unstable gait ) Skin: Other Psych/Mental Status: Other (Confused, not oriented) Assessment/Plan - Assessment Assessment: Patient is awake, alert, calm in no acute distress. BP is high. Dx: Increased in agitation, HTN, S/P CVA, Right hemiparesis, HTN, Dementia - Plan Plan: Patient under psychiatric follow up, Captopril is introduced. Will continue to monitor. Nutritional Asmnt/Malnutr-PDOC - Dietary Evaluation Malnutrition Findings (Please click <Entered> for more info): Nutritional Asmnt/Malnutrition Start: 12/09/16 15: 20 Text: Status: Complete Freq: Document 12/09/16 15:20 GSUN (Rec: 12/09/16 15:38 GSUN [email or web address]) Nutritional Asmnt/Malnutrition Patient General Information Nutritional Screening Moderate Risk Screening Diagnosis Reason for visit: psychosis Pertinent Medical Hx/Surgical Hx CAD, HTN, CVA, dementia, anxiety, psychosis, right hemiparesis, depression Subjective Information 76 year old male from SNF with self inflicted scratches on upper extremities. Pt was confused, pt pointed at his wounds and said "so pretty" several times. Pt stated meals have been good, did not provide any other meaningful responses. Teeth intact. No muscle fat wasting noted. No nutritional concerns per nursing staff. Avg 79% of meals since adm, meeting nutritional needs. Current Diet Order/ Nutrition Support YOLY Pertinent Medications MOM Pertinent Labs Reviewed. Nutritional Hx/Data Height 1.75 m Height (Calculated Centimeters) 175.3 Current Weight (lbs) 86.092 kg Weight (Calculated Kilograms) 86.1 Weight (Calculated Grams) 04961.8 [place] Body Weight 160 Weight Status Overweight GI Symptoms Usual diet at home [facility] [place]: YOLY , peanut butter and jethro sandwich L and D Skin Integrity/Comment: Chris [place]. Current %PO Good (75-100%) Estimated Nutritional Goals Calories/Kcals/Kg IBW 160lb/72.7kg Kcals Calculated 1818-2181kcal (25-30kcal/kg) Protein Calculated 73g (1g/kg) Fluid: ml 1818-2181ml (1ml/kcal) Nutritional Problem 1. Problem Problem No nutritional problem at this time. Intervention/Recommendation Comments 1. Continue with current diet order. Avg PO intake is adequate. 2. Remove "peanut butter and jelly" from diet order as pt is meeting nutritional needs from meals. Expected Outcomes/Goals Expected Outcomes/Goals 1. PO intake continue to meet at least 75% of estimated nutritional needs.
--- NOTE | 2016-12-17 01:56 | Progress Notes ---
DATE: 12/16/2016 Case was discussed with staff of the patient, reviewed records. The patient continues to be internally preoccupied, stays in his room, hardly participates in a meaningful conversation, unpredictable, impulsive. Staff reports he is now more compliant with the medication, no side effects with the medication, no sedation, no nausea, no extrapyramidal symptoms. He is already on Aricept 5 mg a day. We will continue to work with the patient in group therapy, milieu therapy, and adjust medication as needed. JOB# [id number]
--- NOTE | 2016-12-17 08:43 | General Progress Note ---
Subjective - Review of Systems Service Date: 12/17/16 Subjective: Patient is confused Objective - Results Result Diagrams: 12/04/16 17:02 12/04/16 17:02 Recent Labs: Laboratory Last Values WBC 10.3 Th/cmm (4.8-10.8) 12/04/16 17:02 RBC 6.15 Mil/cmm (3.80-5.80) H 12/04/16 17:02 Hgb 16.6 gm/dL (12.6-17.4) 12/04/16 17:02 Hct 51.0 % (39.0-49.0) H 12/04/16 17:02 MCV 83.0 fl (80-99) 12/04/16 17: MCH 27.1 pg (27.0-31.0) 12/04/16 17: MCHC Differential 32.6 pg (28.0-36.0) 12/04/16 17:02 RDW 14.9 % (11.5-20.0) 12/04/16 17:02 Plt Count 214 Th/cmm (150-400) 12/04/16 17:02 MPV 7.9 fl 12/04/16 17:02 Neutrophils (Manual) 75 % (40-80) 12/04/16 17: Lymphocytes 20 % (20-50) 12/04/16 17:02 Monocytes 2 % (2-10) 12/04/16 17:02 Eosinophils 2 % (0-5) 12/04/16 17:02 Basophils 1 % (0-3) 12/04/16 17:02 Platelet Estimate ADEQUATE (NORMAL) 12/04/16 17: Platelet Morphology NORMAL (NORMAL) 12/04/16 17:02 RBC Morph Micro Appear NORMAL (NORMAL) 12/04/16 17:02 PT 10.8 SECONDS (9.5-11.5) 12/04/16 17:02 INR 1.04 (0.5-1.4) 12/04/16 17:02 PTT (Actin FS) 24.1 SECONDS (26.0-38.0) L 12/04/16 17:02 Sodium 137 mEq/L (136-145) 12/04/16 17:02 Potassium 3.6 mEq/L (3.5-5.1) 12/04/16 17:02 Chloride 102 mEq/L (98-107) 12/04/16 17:02 Carbon Dioxide 27.2 mEq/L (21.0-31.0) 12/04/16 17:02 Anion Gap 11.4 (7.0-16.0) 12/04/16 17:02 BUN 17 mg/dL (7-25) 12/04/16 17:02 Creatinine 1.0 mg/dL (0.7-1.3) 12/04/16 17:02 Est GFR ( Amer) TNP 12/04/16 17:02 Est GFR (Non-Af Amer) TNP 12/04/16 17:02 BUN/Creatinine Ratio 17.0 12/04/16 17:02 Glucose 138 mg/dL (70-105) H 12/04/16 17:02 Calcium 9.6 mg/dL (8.6-10.3) 12/04/16 17:02 Total Bilirubin 0.8 mg/dL (0.3-1.0) 12/04/16 17:02 AST 13 U/L (13-39) 12/04/16 17:02 ALT 8 U/L (7-52) 12/04/16 17:02 Alkaline Phosphatase 91 U/L (34-104) 12/04/16 17:02 Troponin I 0.02 ng/mL (0.01-0.05) 12/04/16 17:02 Total Protein 8.0 gm/dL (6.0-8.3) 12/04/16 17:02 Albumin 4.1 gm/dL (4.2-5.5) L 12/04/16 17:02 Globulin 3.9 gm/dL 12/04/16 17:02 Albumin/Globulin Ratio 1.1 (1.0-1.8) 12/04/16 17:02 Triglycerides 120 mg/dL (<150) 12/04/16 17:02 Cholesterol 148 mg/dL (<200) 12/04/16 17:02 LDL Cholesterol Direct 97 mg/dL (75-193) 12/04/16 17:02 HDL Cholesterol 37 mg/dL (23-92) 12/04/16 17:02 TSH 2.16 uIU/ml (0.34-5.60) 12/04/16 17:02 RPR NONREACTIVE (NONREACTIVE) 12/04/16 17:02 - Physical Exam Vitals and I&O: Vital Signs Temp 97.7 F 12/16/16 06:45 Pulse 74 12/16/16 16:22 Resp 74 12/16/16 16:00 BP 185/95 12/16/16 16:22 Pulse Ox 94 12/16/16 06:45 Intake & Output 12/16/16 12/17/16 12/17/16 18:59 06:59 18:59 Intake Total 2200 120 Output Total 200 Balance 2000 120 Intake: Oral 2200 120 Output: Urine 200 Other: # Voids 2 3 # Bowel Movements 0 Active Medications: Current Medications Acetaminophen (Tylenol) 650 mg PO Q6H PRN PRN Reason: Mild Pain/Headache/T above 101 Stop: 02/02/17 22:00 Al Hydrox/Mg Hydrox/Simethicone (Maalox) 30 ml PO Q6H PRN PRN Reason: Dyspepsia Stop: 02/02/17 22:00 Alprazolam (Xanax) 0.5 mg PO TID PRN; Protocol PRN Reason: Anxiety Stop: 02/02/17 22:02 Captopril (Capoten 25 Mg Tab) 25 mg PO BID GINETTE Stop: 02/14/17 08:59 Last Admin: 12/16/16 16:22 Dose: 25 mg Donepezil HCl (Aricept) 5 mg PO HS GINETTE Stop: 02/06/17 20:59 Last Admin: 12/16/16 21:31 Dose: 5 mg Haloperidol (Haldol) 2 mg PO BID GINETTE PRN Reason: Protocol Stop: 02/09/17 16:59 Last Admin: 12/16/16 16:22 Dose: 2 mg Haloperidol Lactate (Haldol) 2 mg IM BID PRN PRN Reason: IF REFUSES PO HALDOL Stop: 02/09/17 13:14 Last Admin: 12/11/16 18:53 Dose: 2 mg Lorazepam (Ativan) 1 mg PO Q6H PRN; Protocol PRN Reason: Anxiety/Agitation Stop: 02/02/17 22:00 Last Admin: 12/15/16 20:13 Dose: 1 mg Magnesium Hydroxide (Milk Of Magnesia) 30 ml PO HS PRN PRN Reason: Constipation Stop: 02/02/17 22:00 Zolpidem Tartrate (Ambien) 5 mg PO HS PRN PRN Reason: Insomnia Stop: 02/02/17 22:00 General: Alert, Other (Confused, not oriented) HEENT: Atraumatic Neck: Supple Cardiovascular: Regular rate Lungs: Clear to auscultation Abdomen: Bowel sounds, Soft Extremities: Other (No edema) Neurological: Other (Unstable gait ) Skin: Other Psych/Mental Status: Other (Confused, not oriented) Assessment/Plan - Assessment Assessment: Patient is awake, alert, calm in no acute distress. BP is not recorder due to patient refused vitals be taken. Dx: Increased in agitation, HTN, S/P CVA, Right hemiparesis, HTN, Dementia - Plan Plan: Patient under psychiatric follow up, Captopril is introduced. Will continue to monitor. Nutritional Asmnt/Malnutr-PDOC - Dietary Evaluation Malnutrition Findings (Please click <Entered> for more info): Nutritional Asmnt/Malnutrition Start: 12/09/16 15: 20 Text: Status: Complete Freq: Document 12/09/16 15:20 GSUN (Rec: 12/09/16 15:38 GSUN [email or web address]) Nutritional Asmnt/Malnutrition Patient General Information Nutritional Screening Moderate Risk Screening Diagnosis Reason for visit: psychosis Pertinent Medical Hx/Surgical Hx CAD, HTN, CVA, dementia, anxiety, psychosis, right hemiparesis, depression Subjective Information 76 year old male from SNF with self inflicted scratches on upper extremities. Pt was confused, pt pointed at his wounds and said "so pretty" several times. Pt stated meals have been good, did not provide any other meaningful responses. Teeth intact. No muscle fat wasting noted. No nutritional concerns per nursing staff. Avg 79% of meals since adm, meeting nutritional needs. Current Diet Order/ Nutrition Support YOLY Pertinent Medications MOM Pertinent Labs Reviewed. Nutritional Hx/Data Height 1.75 m Height (Calculated Centimeters) 175.3 Current Weight (lbs) 86.092 kg Weight (Calculated Kilograms) 86.1 Weight (Calculated Grams) 72650.8 [place] Body Weight 160 Weight Status Overweight GI Symptoms Usual diet at home [facility] [place]: YOLY , peanut butter and jethro sandwich L and D Skin Integrity/Comment: Chris 16. Current %PO Good (75-100%) Estimated Nutritional Goals Calories/Kcals/Kg IBW 160lb/72.7kg Kcals Calculated 1818-2181kcal (25-30kcal/kg) Protein Calculated 73g (1g/kg) Fluid: ml 1818-2181ml (1ml/kcal) Nutritional Problem 1. Problem Problem No nutritional problem at this time. Intervention/Recommendation Comments 1. Continue with current diet order. Avg PO intake is adequate. 2. Remove "peanut butter and jelly" from diet order as pt is meeting nutritional needs from meals. Expected Outcomes/Goals Expected Outcomes/Goals 1. PO intake continue to meet at least 75% of estimated nutritional needs.
--- NOTE | 2016-12-17 23:09 | Progress Notes ---
DATE: 12/17/2016 Case was discussed with staff of the patient, reviewed records. The patient is reported by the staff that he is starting to show some progress and he is able to say thank you. He continues to be internally preoccupied. He is demented and confused. He gets suicidal. When I talked to him ____ I am. He would be going to [facility] and they have talked to the who was agreeable. He is sleeping better, eating better. He is compliant with the medication with no side effects and if he continues to do well, we will discharge tomorrow. I will continue the patient in group therapy, milieu therapy, and adjust medications as needed. JOB# [id number]
--- NOTE | 2016-12-18 09:19 | General Progress Note ---
Subjective - Review of Systems Service Date: 12/18/16 Subjective: Patient is confused Objective - Results Result Diagrams: 12/04/16 17:02 12/04/16 17:02 Recent Labs: Laboratory Last Values WBC 10.3 Th/cmm (4.8-10.8) 12/04/16 17:02 RBC 6.15 Mil/cmm (3.80-5.80) H 12/04/16 17:02 Hgb 16.6 gm/dL (12.6-17.4) 12/04/16 17:02 Hct 51.0 % (39.0-49.0) H 12/04/16 17:02 MCV 83.0 fl (80-99) 12/04/16 17:02 MCH 27.1 pg (27.0-31.0) 12/04/16 17: MCHC Differential 32.6 pg (28.0-36.0) 12/04/16 17:02 RDW 14.9 % (11.5-20.0) 12/04/16 17:02 Plt Count 214 Th/cmm (150-400) 12/04/16 17:02 MPV 7.9 fl 12/04/16 17:02 Neutrophils (Manual) 75 % (40-80) 12/04/16 17: Lymphocytes 20 % (20-50) 12/04/16 17:02 Monocytes 2 % (2-10) 12/04/16 17:02 Eosinophils 2 % (0-5) 12/04/16 17:02 Basophils 1 % (0-3) 12/04/16 17:02 Platelet Estimate ADEQUATE (NORMAL) 12/04/16 17: Platelet Morphology NORMAL (NORMAL) 12/04/16 17:02 RBC Morph Micro Appear NORMAL (NORMAL) 12/04/16 17:02 PT 10.8 SECONDS (9.5-11.5) 12/04/16 17:02 INR 1.04 (0.5-1.4) 12/04/16 17:02 PTT (Actin FS) 24.1 SECONDS (26.0-38.0) L 12/04/16 17:02 Sodium 137 mEq/L (136-145) 12/04/16 17:02 Potassium 3.6 mEq/L (3.5-5.1) 12/04/16 17:02 Chloride 102 mEq/L (98-107) 12/04/16 17:02 Carbon Dioxide 27.2 mEq/L (21.0-31.0) 12/04/16 17:02 Anion Gap 11.4 (7.0-16.0) 12/04/16 17:02 BUN 17 mg/dL (7-25) 12/04/16 17:02 Creatinine 1.0 mg/dL (0.7-1.3) 12/04/16 17:02 Est GFR ( Amer) TNP 12/04/16 17:02 Est GFR (Non-Af Amer) TNP 12/04/16 17:02 BUN/Creatinine Ratio 17.0 12/04/16 17:02 Glucose 138 mg/dL (70-105) H 12/04/16 17:02 Calcium 9.6 mg/dL (8.6-10.3) 12/04/16 17:02 Total Bilirubin 0.8 mg/dL (0.3-1.0) 12/04/16 17:02 AST 13 U/L (13-39) 12/04/16 17:02 ALT 8 U/L (7-52) 12/04/16 17:02 Alkaline Phosphatase 91 U/L (34-104) 12/04/16 17:02 Troponin I 0.02 ng/mL (0.01-0.05) 12/04/16 17:02 Total Protein 8.0 gm/dL (6.0-8.3) 12/04/16 17:02 Albumin 4.1 gm/dL (4.2-5.5) L 12/04/16 17:02 Globulin 3.9 gm/dL 12/04/16 17:02 Albumin/Globulin Ratio 1.1 (1.0-1.8) 12/04/16 17:02 Triglycerides 120 mg/dL (<150) 12/04/16 17:02 Cholesterol 148 mg/dL (<200) 12/04/16 17:02 LDL Cholesterol Direct 97 mg/dL (75-193) 12/04/16 17:02 HDL Cholesterol 37 mg/dL (23-92) 12/04/16 17:02 TSH 2.16 uIU/ml (0.34-5.60) 12/04/16 17:02 RPR NONREACTIVE (NONREACTIVE) 12/04/16 17:02 - Physical Exam Vitals and I&O: Vital Signs Temp 97.4 F 12/18/16 06:33 Pulse 64 12/18/16 08:35 Resp 20 12/18/16 06:33 BP 145/76 12/18/16 08:35 Pulse Ox 97 12/18/16 06:33 Intake & Output 12/17/16 12/18/16 12/18/16 18:59 06:59 18:59 Intake Total 1800 120 Output Total 200 Balance 1600 120 Intake: Oral 1800 120 Output: Urine 200 Other: # Voids 2 3 # Bowel Movements 0 Active Medications: Current Medications Acetaminophen (Tylenol) 650 mg PO Q6H PRN PRN Reason: Mild Pain/Headache/T above 101 Stop: 02/02/17 22:00 Al Hydrox/Mg Hydrox/Simethicone (Maalox) 30 ml PO Q6H PRN PRN Reason: Dyspepsia Stop: 02/02/17 22:00 Alprazolam (Xanax) 0.5 mg PO TID PRN; Protocol PRN Reason: Anxiety Stop: 02/02/17 22:02 Captopril (Capoten 25 Mg Tab) 25 mg PO BID GINETTE Stop: 02/14/17 08:59 Last Admin: 12/18/16 08:35 Dose: 25 mg Donepezil HCl (Aricept) 5 mg PO HS GINETTE Stop: 02/06/17 20:59 Last Admin: 12/17/16 21:00 Dose: 5 mg Haloperidol (Haldol) 2 mg PO BID GINETTE PRN Reason: Protocol Stop: 02/09/17 16:59 Last Admin: 12/18/16 08:42 Dose: 2 mg Haloperidol Lactate (Haldol) 2 mg IM BID PRN PRN Reason: IF REFUSES PO HALDOL Stop: 02/09/17 13:14 Last Admin: 12/11/16 18:53 Dose: 2 mg Lorazepam (Ativan) 1 mg PO Q6H PRN; Protocol PRN Reason: Anxiety/Agitation Stop: 02/02/17 22:00 Last Admin: 12/15/16 20:13 Dose: 1 mg Magnesium Hydroxide (Milk Of Magnesia) 30 ml PO HS PRN PRN Reason: Constipation Stop: 02/02/17 22:00 Zolpidem Tartrate (Ambien) 5 mg PO HS PRN PRN Reason: Insomnia Stop: 02/02/17 22:00 General: Alert, Other (Confused, not oriented) HEENT: Atraumatic Neck: Supple Cardiovascular: Regular rate Lungs: Clear to auscultation Abdomen: Bowel sounds, Soft Extremities: Other (No edema) Neurological: Other (Unstable gait ) Skin: Other Psych/Mental Status: Other (Confused, not oriented) Assessment/Plan - Assessment Assessment: Patient is awake, alert, calm in no acute distress. BP is not recorder due to patient refused vitals be taken. Dx: Increased in agitation, HTN, S/P CVA, Right hemiparesis, HTN, Dementia - Plan Plan: Patient under psychiatric follow up, Captopril is introduced. Will continue to monitor. Nutritional Asmnt/Malnutr-PDOC - Dietary Evaluation Malnutrition Findings (Please click <Entered> for more info): Nutritional Asmnt/Malnutrition Start: 12/09/16 15: 20 Text: Status: Complete Freq: Document 12/09/16 15:20 GSUN (Rec: 12/09/16 15:38 GSUN [email or web address]) Nutritional Asmnt/Malnutrition Patient General Information Nutritional Screening Moderate Risk Screening Diagnosis Reason for visit: psychosis Pertinent Medical Hx/Surgical Hx CAD, HTN, CVA, dementia, anxiety, psychosis, right hemiparesis, depression Subjective Information 76 year old male from SNF with self inflicted scratches on upper extremities. Pt was confused, pt pointed at his wounds and said "so pretty" several times. Pt stated meals have been good, did not provide any other meaningful responses. Teeth intact. No muscle fat wasting noted. No nutritional concerns per nursing staff. Avg 79% of meals since adm, meeting nutritional needs. Current Diet Order/ Nutrition Support YOLY Pertinent Medications MOM Pertinent Labs Reviewed. Nutritional Hx/Data Height 1.75 m Height (Calculated Centimeters) 175.3 Current Weight (lbs) 86.092 kg Weight (Calculated Kilograms) 86.1 Weight (Calculated Grams) 37551.8 [place] Body Weight 160 Weight Status Overweight GI Symptoms Usual diet at home [facility] [place]: YOLY , peanut butter and jethro sandwich L and D Skin Integrity/Comment: Chris Mojica. Current %PO Good (75-100%) Estimated Nutritional Goals Calories/Kcals/Kg IBW 160lb/72.7kg Kcals Calculated 1818-2181kcal (25-30kcal/kg) Protein Calculated 73g (1g/kg) Fluid: ml 1818-2181ml (1ml/kcal) Nutritional Problem 1. Problem Problem No nutritional problem at this time. Intervention/Recommendation Comments 1. Continue with current diet order. Avg PO intake is adequate. 2. Remove "peanut butter and jelly" from diet order as pt is meeting nutritional needs from meals. Expected Outcomes/Goals Expected Outcomes/Goals 1. PO intake continue to meet at least 75% of estimated nutritional needs.
--- NOTE | 2016-12-18 12:08 | Discharge Summary ---
DATE OF DISCHARGE: 12/18/2016 IDENTIFYING INFORMATION: The patient is a 76-year-old male. HISTORY OF PRESENT ILLNESS: The patient was admitted because of agitation, combative behavior, violent behavior. The patient was aggressive, uncooperative, combative at the long term trying to hit staff. The patient was making nonsensical statements, unable to participate in meaningful conversation upon admission. COURSE IN THE HOSPITAL: The patient's medications were continued. Zyprexa; however, refused to take his medication for a few days, so we decided to recently changed him from Zyprexa to Haldol 2 mg twice a day to be given intramuscularly if he refuses also on Haldol was added 5 mg at bedtime. He was also on alprazolam as needed. The patient progressively got better. He was compliant with the medication. He was sleeping well, eating well. He was no longer acting in an aggressive manner or psychotic. So as he improved, we felt he could be discharged to a lesser level of care. 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 The patient will be going to a long term where he came from; expected outcome is stable. If the patient complies with the above. [facility]# [id number]
== END 2016-12-18 17:30 | DRG 884 ==
LOC: ER 16:20 → GERO 19:37
PROVIDERS: ADMIT Psychiatry & Neurology Psychiatry; ATTEND Psychiatry & Neurology Psychiatry
DX: F03.91 Unspecified dementia, unspecified severity, with behavioral disturbance (principal); I69.351 Hemiplegia and hemiparesis following cerebral infarction affecting right dominant side; F29 Unspecified psychosis not due to a substance or known physiological condition; F41.9 Anxiety disorder, unspecified; I10 Essential (primary) hypertension; I25.10 Atherosclerotic heart disease of native coronary artery without angina pectoris; E78.5 Hyperlipidemia, unspecified; F32.9 Major depressive disorder, single episode, unspecified
CPT/HCPCS: 36415-UA; 80053-TC; 80061-TC; 84443-TC; 84484-TC; 85007-TC; 85027-TC; 85610-TC; 85730-TC; 86592-TC; J1200; J1630; J2060; J7051; Z7610